=== PATIENT | female | born 1965 | race Caucasian/White ===

== ENCOUNTER 2023-09-10 17:13 | Emergency (ER) | payer BC, SELFPAY ==
[2023-09-10 17:19] VITALS: BP 159/81; PULSE 112; TEMP 36.8; O2SAT 100; BMI 18.3
--- NOTE | 2023-09-10 17:32 | ED_ITS ---
HPI - Animal Bite General Chief Complaint: Animal Bite Stated Complaint: Cat Bite Time Seen by Provider: 09/10/23 17:25 Source: patient Mode of arrival: walk-in History of Present Illness HPI narrative: 58-year-old female presents for cat bite and scratches to both hands, primarily the left hand. This happened 3 days ago and she is up-to-date on her tetanus status. She was mostly worried about her left index finger because it turned r ed so she came in. No other injury was sustained. She has not yet sought medical care. Related Data Previous Rx's ?Medication ?Instructions ?Recorded clindamycin HCl 300 mg capsule 300 mg PO Q6H 10 days #40 caps 09/10/23 sulfamethoxazole 800 1 tab PO BID 10 days #20 tabs 09/10/23 mg-trimethoprim 160 mg tablet (Bactrim DS) Allergies Allergy/AdvReac Type Severity Reaction Status Date / Time Penicillins Allergy Severe Verified 09/10/23 17:24 Review of Systems ROS Narrative A ten point review of systems is negative except as noted above. Exam Narrative Exam Narrative: Nurses note and vital signs reviewed and patient is not hypoxic. General: The patient appears well and in no apparent distress. Patient is resting comfortably on cart. Skin: Warm, dry, no pallor noted. There is no rash noted. Head: Normocephalic, atraumatic Eye: Normal conjunctiva, no drainage Ears, Nose, Mouth, and Throat: oral mucosa is moist. Nares patent. Cardiovascular: Regular Rate and Rhythm Respiratory: Patient is in no distress, no accessory muscle use Back: non-tender GI: Soft and nontender Musculoskeletal: She has numerous abrasions and bite barnett on both hands, more on the left than the right. None extend above the wrist. Left index finger has some mild erythema but it is not swollen and DIP and PIP have good range of motion. No drainage or lymphangitis. Neurological: A&O, normal speech Psychiatric: Cooperative Constitutional Vital Signs, click to edit/add: Last Vital Signs Temp 98.3 F 09/10/23 17:19 Pulse 112 H 09/10/23 17:19 Resp 18 09/10/23 17:19 BP 159/81 H 09/10/23 17:19 Pulse Ox 100 09/10/23 17:19 O2 Del Method Room Air 09/10/23 17:19 Course Vital Signs Vital signs: Vital Signs Temperature 98.3 F 09/10/23 17:19 Pulse Rate 112 H 09/10/23 17:19 Respiratory Rate 18 09/10/23 17:19 Blood Pressure 159/81 H 09/10/23 17:19 Pulse Oximetry 100 09/10/23 17:19 Oxygen Delivery Method Room Air 09/10/23 17:19 Temperature 98.3 F 09/10/23 17:19 Pulse Rate 112 H 09/10/23 17:19 Respiratory Rate 18 09/10/23 17:19 Blood Pressure 159/81 H 09/10/23 17:19 Pulse Oximetry 100 09/10/23 17:19 Oxygen Delivery Method Room Air 09/10/23 17:19 MDM - Animal Bite MDM Narrative Medical decision making narrative: Tetanus is up-to-date. She is prescribed Bactrim and clindamycin and these were started here. Treatment diagnosis and follow-up were discussed with the patient. She will return for worsening symptoms. Differential Diagnosis Differential diagnosis: Likely cat bite and other (Cellulitis) Discharge Plan Discharge Stand Alone Forms: Portal Instructions Chief Complaint: Animal Bite Clinical Impression: Cat bite Patient Disposition: Home, Self-Care Time of Disposition Decision: 17:32 Condition: Good Mode of Transportation: Private Vehicle Prescriptions / Home Meds: New clindamycin HCl 300 mg capsule 300 mg PO Q6H 10 Days Qty: 40 0RF sulfamethoxazole-trimethoprim [Bactrim DS] 800-160 mg tablet 1 tab PO BID 10 Days Qty: 20 0RF Print Language: Georgian Instructions: Animal Bite (ED) Referrals: ENRRIQUE ZEE [Primary Care Provider] - 1 week
[2023-09-10] MEDS: SULFAMETHOXAZOLE/TRIMETHOPRIM 800-160 MG TABLET 1 TAB PO (17:39)
[2023-09-10] MEDS: CLINDAMYCIN HCL 150 MG CAPSULE 300 MG PO (17:39)
== END 2023-09-10 17:43 | disposition home or self-care (01) ==
PROVIDERS: Emergency Provider Emergency Medicine; PCP Internal Medicine
DX: S61.452A Open bite of left hand, initial encounter (principal); S61.451A Open bite of right hand, initial encounter; W55.01XA Bitten by cat, initial encounter
CPT/HCPCS: 99283

== ENCOUNTER 2023-12-13 06:50 | Outpatient (OUT) | payer BC, SELFPAY ==
--- NOTE | 2023-12-13 06:54 | MM_ITS ---
Patient Name: JOSH CORDERO MR#: [id number] : 1965 Exam Date: 12/13/2023 Ordering Doctor: DR ENRRIQUE ZEE RADIOLOGY REPORT PROCEDURE: MM TOMOSYNTHESIS SCREENING BI COMPARISON: MG MAMM HERBER SCRN W CAD DIG, 12/11/2012. MG MAMM SCREEN 3D HERBER CAD, 08/23/2022. INDICATIONS: screening for malignant neoplasm of breast Calculator Name NCI Breast Cancer Risk Assessment Tool 5 Year Breast Cancer Risk 1.30% Lifetime Breast Cancer Risk 6.60% Personal Breast Cancer No Personal Ovarian Cancer No Treatments None Family Cancers None LOCATION: [facility] BREAST COMPOSITION: The breasts are extremely dense, which lowers the sensitivity of mammography. FINDINGS: DIAGNOSTIC CATEGORY 2--BENIGN FINDING. NO CHANGE FROM COMPARISON. Scattered benign-appearing calcifications are present. Scattered benign-appearing lymph nodes are present. RIGHT BREAST: No significant suspicious finding. LEFT BREAST: No significant suspicious finding. RECOMMENDATIONS: ROUTINE MAMMOGRAM AND CLINICAL EVALUATION IN 12 MONTHS. PLEASE NOTE: A NORMAL MAMMOGRAM DOES NOT EXCLUDE THE POSSIBILITY OF BREAST CANCER. A CLINICALLY SUSPICIOUS PALPABLE LUMP SHOULD BE BIOPSIED. Dictated by: Ramone Rayo MD on 12/13/2023 at 07:36 Approved by: Ramone Rayo MD on 12/13/2023 at 07:38
== END 2023-12-13 06:51 | disposition home or self-care (01) ==
LOC: MAMMO 06:51
PROVIDERS: PCP Internal Medicine; Visit Provider Internal Medicine
DX: Z12.31 Encounter for screening mammogram for malignant neoplasm of breast (principal)
CPT/HCPCS: 77063; 77067

== ENCOUNTER 2025-01-17 14:35 | Emergency (ER) | payer BC, SELFPAY ==
--- OUTSIDE RECORDS SUMMARY | 2024-03-14 11:04 | XMS_ITS | Continuity of Care Document ---
Author Organization [facility] Address [address] [place] [address] Phone Care Team Providers Care Combination Operator Name Role Phone Shane Smyth Unavailable Unavailable Procedures Procedure Date IMMUNIZATION ADMIN FLU VACCINE NO PRESERV 3 & > FLU VAC NO PRSV 4 COLETTE 3 YRS+ FLU VAC NO PRSV 4 COLETTE 3 YRS+ FLU VAC NO PRSV 4 COLETTE 3 YRS+ IMMUNIZATION ADMIN FLU VAC NO PRSV 4 COLETTE 3 YRS+ FLU VAC NO PRSV 4 COLETTE 3 YRS+ UDS Exempt IMMUNIZATION ADMIN FLU VAC NO PRSV 4 COLETTE 3 YRS+ IMMUNIZATION ADMIN FLU VAC NO PRSV 4 COLETTE 3 YRS+ IMMUNIZATION ADMIN FLU VAC NO PRSV 4 COLETTE 3 YRS+ IMMUNIZATION ADMIN FLU VAC NO PRSV 4 COLETTE 3 YRS+ IMMUNIZATION ADMIN FLU VAC NO PRSV 4 COLETTE 3 YRS+ Advance Directives Directive Yes / No Effective Date File Name No Information Encounters Encounter Description Practice Location Reason(s) For Visit Diagnoses Date Provider Providers Copied on Encounter [facility], [address], [place], [id number], [place] tel:[phone] [facility] No Information Marlin Borjas. [address] [place] [address], [id number], [place]. tel:[phone] [facility], [address], [place], [id number], [place] tel:[phone] [facility] No Information Visci DO Shane. [address], [place], [id number], [place]. tel:[phone] [facility], [address], [place], [id number], [place] tel:[phone] [facility] No Information Visci DO Shane. [address], [place], [id number], [place]. tel:[phone] [facility], [address], [place], [id number], [place] tel:[phone] [facility] No Information Visci DO Lynn. [address], [place], [id number], [place]. tel:[phone] [facility], [address], [place], [id number], [place] tel:[phone] [facility] No Information Visci DO Lynn. [address], [place], [id number], [place]. tel:[phone] [facility], [address], [place], [id number], [place] tel:[phone] [facility] No Information Visci Shane. [address], [place], [id number], [place]. tel:[phone] [facility], [address], [place], [id number], [place] tel:[phone] [facility] No Information Visci DO Lynn. [address], [place], [id number], [place]. tel:[phone] [facility], [address], [place], [id number], [place] tel:[phone] [facility] No Information Viscoseas Borjas. [address], [place], [id number], [place]. tel:[phone] [facility], [address], [place], [id number], [place] tel:[phone] [facility] No Information Marlin Borjas. [address], [place], [id number], [place]. tel:[phone] Family History Family Member Type Diagnosis Age At Onset No Information Immunizations Vaccine Date Status Comments Fluarix/Flulaval administered Source: New Immunization Record Flulaval/ Fluarix administered Source: Ne w Immunization Record Flulaval/ Fluarix administered Source: Ne w Immunization Record Flulaval/ Fluarix administered Source: Ne w Immunization Record Influenza virus vaccine, quadrivalent, split virus, preservative free administered Source: New Immuniza tion Record Influenza virus vaccine, quadrivalent, split virus, preservative free administered Source: New Immuniza tion Record Influenza virus vaccine, injectable, quadrivalent, split virus, preservative free, 3 years or older Fluarix, Flulaval or Fluzone Quad administered Source: New Immuniza tion Record Influenza virus vaccine, injectable, quadrivalent, split virus, preservative free, 3 years or older Fluarix, Flulaval or Fluzone Quad administered Source: New Immuniza tion Record Influenza virus vaccine, injectable, quadrivalent, split virus, preservative free, 3 years or older Fluarix, Flulaval or Fluzone Quad administered Source: New Immuniza tion Record Payers Payer name Insurance type Covered green party ID Authoriza tion(s) No Information Social History Type Description Quantity Date Captured Comments Alcohol Use Details Unknown Caffeine Use Details Unknown Tobacco Use Status No Information Smoking Status No Information Sex Female Sexual Orientation Straight or heterosexual Gender Identity Female Chief Complaint And Reason For Visit No Information Reason For Referral Reason For Referral No Information Plan Of Treatment Date Type Action Status Goal PRAPARE ASSESSMENT. Due on O due Goal FIT. Due on due Goal FIT-DNA. Due on due Goal Hepatitis C screening. Due o n due Goal Lipid panel. Due on due Goal Zoster vaccine (1st). Due on due Goal Tdap Vaccine. Due on [address]-Colonography. Due on due Goal Mammogram. Due on due Goal FOBT. Due on due Goal Unhealthy drug use screening . Due on due Goal Tdap. Due on due Goal Influenza vaccine. Due on Oc due Goal Hep A. Due on du e Goal HPV. Due on due Goal Depression screening. Due on due Goal Colonoscopy. Due on due Goal Colonoscopy. Due on 023 due Goal Tdap. Due on due Goal Hepatitis C screening. Due o n due Goal Depression screening. Due on due Goal FIT. Due on due Goal Hep A. Due on du e Goal FIT-DNA. Due on due Goal CT-Colonography. Due on due Goal HPV. Due on due Goal Lipid panel. Due on 023 due Goal Tdap Vaccine. Due on 2022 due Goal Influenza vaccine. Due on Oc due Goal Mammogram. Due on due Goal FOBT. Due on due Goal Unhealthy drug use screening . Due on due Goal PRAPARE ASSESSMENT. Due on O due Goal Zoster vaccine (1st). Due on due History Of Present Illness Encounter Date Complaint History Of Prese nt Illness No Information Functional Status Date Functional Assessmen t No Information Instructions Date Instruction Additional Infor mation No Information Assessments Type Assessment Date No Information Patient Care Teams Name Effective Dates (start - stop) Status Members No Information
--- OUTSIDE RECORDS SUMMARY | 2025-01-08 15:15 | XMS_ITS | Encounter Summary ---
Author Organization [facility] Address [address] [place] [address] Care Team Providers Care Budget Analyst Name Role Phone Unavailable Primary Care Provider Unavailabl e Reason for Visit * Reason Comments Skin Check Encounter Details Date Type Department Care Team (Late st Contact Info) Description 01/08/2025 3:15 PM EDT Office Visit [facility] [address] [facility] [address] [place] [id number] Regi Moreno MD [address] [facility] [address] [place] [address] Seborrheic keratosis (Primary Dx); Actinic keratosis; Sebaceous hyperplasia of face; Neoplasm of unspecified behavior of bone, soft tissue, and skin; Lentigines; History of basal cell carcinoma Social History Tobacco Use Types Packs/Day Years Used Date Smoking Tobacco: Never Smokeless Tobacco: Never Comments Unknown Sex and Gender Information Value Date Recorded Sex Assigned at Not on file Legal Sex Female 6:42 PM EDT Gender Identity Not on file Sexual Orientation Not on file documented as of this encounter Progress Notes * Regi Moreno MD - 01/08/2025 3:15 PM EDT Images from the original note were not included. Skin Check Location: Patient requests a full body skin examination Dermatologic history: history of Actinic Keratosis, history of Basal Cell Carcinoma Last visit: 05/2024 Lesions: Location: left back Duration: 3 months Quality: painful Associated symptoms: red Treatments: Efudex cream bid x 2 weeks- used for 2 courses, had good response both times but spot did not go away Established patient All pertinent medical history, medications, and allergies were reviewed. General Exam: alert, oriented to person, place, and time, normal affect, well appearing Unaccompanied Areas not examined despite medical recommendation: Under socks Scalp, Examined , exam limited by hair Right leg Examined Head, Face Examined , Patient declined to remove makeup Left leg Examined Neck Examined Right foot Not Examined Chest Examined Patient kept bra on Left foot Not Examined Back Examined Buttocks Examined Patient kept underwear on Abdomen Examined Digits,nails: Examined Right arm Examined Left arm Examined Lymphatics: Not examined Hands Examined Skin Exam 1. SEBORRHEIC KERATOSIS Generalized Stuck on verrucous, hills-brown papules and plaques. Patient was counseled regarding these benign growths. Removal is normally not necessary, but they may be removed if they are symptomatic or for cosmetic reasons. 2. ACTINIC KERATOSIS (6) Left Buccal Cheek, Mid Back, Mid Root of Nose, Right Lower Back, Right Malar Cheek, Right Upper Back Erythematous scaly papules Patient was counseled regarding these sun-induced growths that can develop into squamous cell carcinoma if left untreated. Discussed treatment with cryotherapy. It was emphasized that any treated lesions that fail to resolve should be re- evaluated. Cryotherapy performed today; see procedure note Diagnosis: Actinic keratosis Indication: Precancerous Location: see skin exam Consent: Verbal consent was obtained and risks were discussed, including, but not limited to risks of scarring, darker or glass novelty maker pigmentary changes, recurrence, incomplete removal and infection. Method: Liquid nitrogen was used to treat the lesion(s) with two 5-10 second freeze-thaw cycles. Eyes were shielded using cotton pad during procedure Number of lesions treated: 6 Post-procedure instructions: Instructions were given orally and in writing. The office will be contacted if the lesion fails to resolve despite treatment, or if a side effect develops such as abnormal crusting, scabbing, redness or tenderness Cryotherapy, skin lesion - Left Buccal Cheek, Mid Back, Mid Root of Nose, Right Lower Back, Right Malar Cheek, Right Upper Back Related Medications fluorouracil (Efudex) 5 % cream Apply to directed areas on the chest twice a day x 14 days. Dispense 30 day supply but only use for14 days. 3. SEBACEOUS HYPERPLASIA OF FACE Head - Anterior (Face) Small yellow papules with a central dell. Reassure, benign. Discussed these can be removed for a cosmetic fee with the hyfrecator if desired. 4. NEOPLASM OF UNSPECIFIED BEHAVIOR OF BONE, SOFT TISSUE, AND SKIN Left Upper Back [place] papule Lesion biopsy Type of biopsy: tangential Informed consent: discussed and consent obtained Informed consent comment: The risks and benefits of the biopsy were discussed. Risks include but are not limited to bleeding, infection, scarring, pain, and nerve damage. An opportunity to ask questions prior to the procedure was permitted and all questions were answered. Patient was prepped and draped in usual sterile fashion: area cleansed with alcohol. Anesthesia: the lesion was anesthetized in a standard fashion Anesthetic: 1% lidocaine w/ epinephrine 1-100,000 buffered w/ 8.4% NaHCO3 Instrument used: DermaBlade Hemostasis achieved with: electrodesiccation Outcome: patient tolerated procedure well Outcome comment: The specimen was placed in a prelabeled formalin container to be sent for pathology Post-procedure details: sterile dressing applied and wound care instructions given Post-procedure details comment: Emphasized need to contact clinic for any signs of infection, uncontrollable bleeding, or complications. Dressing type: bandage Additional details: Photo taken Amount of lidocaine used: 1.0 cc Specimen A - Dermatopathology exam Differential Diagnosis: BCC vs inflamed follicle - treated by patient with efudex x 2 Check Margins: No Size of lesion: 0.5 x 0.5 cm Diagnosis: (Z85.828) History of basal cell carcinoma (L57.0) Actinic keratosis Plan: Cryotherapy, skin lesion (L73.8) Sebaceous hyperplasia of face (D49.2) Neoplasm of unspecified behavior of bone, soft tissue, and skin Plan: Lesion biopsy 5. LENTIGINES (2) Head - Anterior (Face), Torso - Posterior (Back) Scattered hills macules in sun-exposed areas. The patient was informed that lentigines are benign pigmented lesions that occur on sun-exposed andsun-damaged skin. No treatment is necessary. Recommended regular use of broad spectrum sunscreen SPF 30 or higher 6. HISTORY OF BASAL CELL CARCINOMA Right Upper Back No evidence of recurrence at BCC scar. The patient was counseled that scars from excisional sites of nonmelanoma skin cancers should be monitored closely for recurrence. The patient was instructed to contact the office for any new, changing, or symptomatic moles. The patient was also instructed to contact the office for any new lesions that develop within or around the previous surgery scar. Next Visit: 6 months documented in this encounter Plan of Treatment Upcoming Encounters Date Type Department Care Team (Late st Contact Info) Description 07/16/2025 3:00 PM EST Office Visit [facility] [address] [place] [id number] Regi Moreno MD [address] [place] [address] documented as of this encounter Procedures Procedure Name Priority Date/Time Associated Diagnosis Comments SKIN / NAIL BIOPSY Routine 01/08/2025 3: 23 PM EDT Neoplasm of unspecified behavior of bone, soft tissue, and skin CRYOTHERAPY SKIN LESION Routine 01/09/20 3:21 PM EDT Actinic keratosis DERMATOPATHOLOGY EXAM Routine 01/08/2025 12:00 AM EDT Neoplasm of unspecified behavior of bone, soft tissue, and skin documented in this encounter Results * Lesion biopsy (01/08/2025 3:23 PM EDT) Narrative Eliz East MA - 01/08/2025 3:23 PM EDT Type of biopsy: tangential Informed consent: discussed and consent obtained Informed consent comment: The risks and benefits of the biopsy were discussed. Risks include but are not limited to bleeding, infection, scarring, pain, and nerve damage. An opportunity to ask questions prior to the procedure was permitted and all questions were answered. Patient was prepped and draped in usual sterile fashion: area cleansed with alcohol. Anesthesia: the lesion was anesthetized in a standard fashion Anesthetic: 1% lidocaine w/ epinephrine 1-100,000 buffered w/ 8.4% NaHCO3 Instrument used: DermaBlade Hemostasis achieved with: electrodesiccation Outcome: patient tolerated procedure well Outcome comment: The specimen was placed in a prelabeled formalin container to be sent for pathology Post-procedure details: sterile dressing applied and wound care instructions given Post-procedure details comment: Emphasized need to contact clinic for any signs of infection, uncontrollable bleeding, or complications. Dressing type: bandage Additional details: Photo taken Amount of lidocaine used: 1.0 cc Regi Moreno MD DERM PROCEDURE ORDERABLES Fin al Result * Cryotherapy, skin lesion (01/08/2025 3:21 PM EDT) Regi Moreno MD DERM PROCEDURE ORDERABLES Fin al Result * Dermatopathology exam (01/08/2025 12:00 AM EDT) SPECIMEN TYPE ------ SPECIMEN: LEFT UPPER BACK ------ [facility] ICD10 Code D23.5 [facility] PROTOCOL F - FLAT [facility] Final Diagnosis LICHENOID KERATOSIS. [facility] Gross Text [facility] Microscopic Description Microscopic examination performed. [facility] CPT 16914*1 [facility] Skin Topography unknown / Unknown 01/08/2025 3:23 PM EDT Comment:Differential Diagnos is: BCC vs inflamed follicle - treated by patient with efudex x 2 Check Margins: No Size of lesion: 0.5 x 0.5 cm Diagnosis: (Z85.828) History of basal cell carcinoma (L57.0) Actinic keratosis Plan: Cryotherapy, skin lesion (L73.8) Sebaceous hyperplasia of face (D49.2) Neoplasm of unspecified behavior of bone, soft tissue, and skin Plan: Lesion biopsy Regi Moreno MD LAB PATHOLOGY ORDERABLES Marley l Result [facility] documented in this encounter Visit Diagnoses Diagnosis Seborrheic keratosis- Primary Actinic keratosis Sebaceous hyperplasia of face Neoplasm of unspecified behavior of bone, soft tissue, and skin Lentigines History of basal cell carcinoma Personal history of other malignant neoplasm of skin documented in this encounter
[2025-01-17 14:44] VITALS: BP 129/62; PULSE 85; TEMP 36.6; O2SAT 100; BMI 17.5
--- OUTSIDE RECORDS SUMMARY | 2025-01-17 14:44 | XMS_ITS | Encounter Summary ---
Author Organization [employer] [facility] Address [id number] [address] [place] [address] Care Team Providers Care Employment Officer Name Role Phone Ruben Booker Primary Care Provider [phone] Encounter Details Date Type Department Care Team (Late st Contact Info) Description 05/16/2024 Telephone [facility] Internal Medicine - Family Medicine [address] [place] [address] Francine Ramirez CMA Social History Tobacco Use Types Packs/Day Years Used Date Smoking Tobacco: Never Smokeless Tobacco: Never Alcohol Use Standard Drinks/Week Comments No 0 (1 standard drink = 0.6 oz pur e alcohol) PHQ-2 Answer Date Recorded Total Score 0 11/20/2023 Childcare Answer Date Recorded Childcare Unknown 10/30/2018 Employment Answer Date Recorded Employment Unknown 10/30/2018 Hunger Screening Answer Date Recorded Within the past 12 months we worried whether our food would run out before we got money to buy more. Never True 11/20/2023 Within the past 12 months th e food we bought just didn't last and we didn't have money to get more. Never True 11/20/2023 Purpose - Life Answer Date Recorded Purpose and direction in life Unknown Comments No Sex and Gender Information Value Date Recorded Sex Assigned at Not on file Legal Sex Female 4:49 PM EDT Gender Identity Not on file Sexual Orientation Not on file documented as of this encounter Miscellaneous Notes * Telephone Encounter - Francine Ramirez CMA - 05/16/2024 2:53 PM EST Pt called stated she has a sinus infection wanted to know if you could send something in or call her ? * Telephone Encounter - Ruben Booker DO - 05/16/2024 2:53 PM EST Message noted. What has she tried? How long has it been going on? Fevers? * Telephone Encounter - Francine Ramirez CMA - 05/16/2024 2:53 PM EST Called pt no fever, been going on for 3-4 days , she's tried sudifed it helped with headache and unplugged her a bit and saline that helped unplug it a bit also documented in this encounter Plan of Treatment Not on file documented as of this encounter Visit Diagnoses Not on filedocumented in this encounter Additional Health Concerns Assessment Noted Time PHQ-9 Depression Total Score: 0 11/20/19 24 3:48 PM EDT documented as of this encounter Care Teams Employment Officer Relationship Specialty Start Date End Date Ruben Booker DO [address] [place] [address] PCP - General Internal Medicine 04/21/17 documented as of this encounter
--- OUTSIDE RECORDS SUMMARY | 2025-01-17 14:44 | XMS_ITS | Clinical Summary ---
Author Organization [facility] Healthcare Address [address] [place] [address] [place] [address] Care Team Providers Care Emergency Nurse Name Role Phone Unavailable Primary Care Provider Unavailabl e Allergies Active Allergy Reactions Criticality Noted Date Comments Ciprofloxacin Hives,GI intolerance High 04/21/2017 Penicillins Hives,Nausea Only Medium 12/07/2020 Other Reaction(s): very sick from this antibiotic Medications insulin glargine (Lantus) 100 UNIT/ML pen 1 Units 4 Active insulin lispro (HumaLOG) 100 UNIT/ML injection inject 30 units daily VIA INSULIN PUMP Subcutaneous for 28 Active lisinopril 10 MG tablet Daily 4 Active Multiple Vitamin (multivitamin) capsule 1 (one) time each day at the same time Active rosuvastatin (Crestor) 5 MG tablet Daily 3 Active fluorouracil (Efudex) 5 % creamIndication s:Actinic keratosis Apply to directed areas on the chest twice a day x 14 days. Dispense 30 day supply but only use for 14 days. 40 g 4 Active FLUoxetine (PROzac) 10 MG capsule 5 Active propranolol (Inderal) 10 MG tablet every 8 (eight) hours Active lamoTRIgine (LaMICtal) 200 MG tablet 5 Active ziprasidone (Geodon) 20 MG capsule 5 Active Active Problems No known active problems Encounters Date Type Department Care Team Description 01/13/2025 Results Follow-Up [facility] Dermatology [address] [place] [id number] Regi Moreno MD Dermatopathology exam 01/08/2025 3:15 PM EDT Office Visit [facility] [address] [facility] [address] [place] [address] Regi Moreno MD Seborrheic keratosis (Primary Dx); Actinic keratosis; Sebaceous hyperplasia of face; Neoplasm of unspecified behavior of bone, soft tissue, and skin; Lentigines; History of basal cell carcinoma 01/08/2025 [facility] [place] [facility] [address] [facility] [address] [place] [address] Regi Moreno MD 01/08/2025 Travel from Last 3 Months Social History Tobacco Use Types Packs/Day Years Used Date Smoking Tobacco: Never Smokeless Tobacco: Never Tobacco Cessation:Counseling Given: Not Answered Comments Unknown Sex and Gender Information Value Date Recorded Sex Assigned at Not on file Legal Sex Female 6:42 PM EDT Gender Identity Not on file Sexual Orientation Not on file Last Filed Vital Signs Vital Sign Reading Time Taken Comments Blood Pressure 110/60 05/10/2024 8:57 AM EST Pulse - - Temperature - - Respiratory Rate - - Oxygen Saturation - - Inhaled Oxygen Concentration - - Weight 49.9 kg (110 lb) 12/01/2020 12:00 PM EDT Height 163.8 cm (5' 4.5 ) 12/01/2020 12:00 PM ED T Body Mass Index 18.59 12/01/2020 12:00 PM EDT Plan of Treatment Upcoming Encounters Date Type Department Care Team (Late st Contact Info) Description 07/16/2025 3:00 PM EST [facility] [address] [facility] [address] [place] [address] Regi Moreno MD [address] [facility] [address] [place] [address] Health Maintenance Due Date Last Done Comments CT Colonography 1963 Colonoscopy 1963 FIT 1963 FOBT 1963 Sigmoidoscopy 1963 Pap Smear 08/02/1984 Colorectal Cancer Screening 01/18/2024 FIT-DNA 01/18/2024 01/17/2021 Mammogram 12/12/2024 12/13/2023, 08/24/2022 Influenza Vaccine (#1) 2025 4, 03/07/2023, 02/15/2022, Additional history exists Cervical Cancer Screening 08/10/2027 HPV/Cotest 08/10/2027 08/09/2022 Procedures Procedure Name Priority Date/Time Associated Diagnosis Comments SKIN / NAIL BIOPSY Routine 01/08/2025 3: 23 PM EDT Neoplasm of unspecified behavior of bone, soft tissue, and skin CRYOTHERAPY SKIN LESION Routine 01/09/20 3:21 PM EDT Actinic keratosis DERMATOPATHOLOGY EXAM Routine 01/08/2025 12:00 AM EDT Neoplasm of unspecified behavior of bone, soft tissue, and skin from Last 3 Months Results * Lesion biopsy (01/08/2025 3:23 PM [...] taken Amount of lidocaine used: 1.0 cc us Regi Moreno MD DERM PROCEDURE ORDERABLES Fin al Result * Cryotherapy, skin lesion (01/08/2025 3:21 PM EDT) us Regi Moreno MD DERM PROCEDURE ORDERABLES Fin al Result * Dermatopathology exam (01/08/2025 12:00 AM EDT) SPECIMEN TYPE ------ SPECIMEN: LEFT UPPER BACK ------ [facility] ICD10 Code D23.5 [facility] PROTOCOL F - FLAT [facility] Final Diagnosis LICHENOID KERATOSIS. [facility] Gross Text [facility] Microscopic Description Microscopic examination performed. [facility] CPT 21470*1 [facility] Skin Topography unknown / Unknown [...] soft tissue, and skin Plan: Lesion biopsy us Regi Moreno MD LAB PATHOLOGY ORDERABLES Marley l Result [facility] from Last 3 Months Insurance [facility]
--- OUTSIDE RECORDS SUMMARY | 2025-01-17 14:44 | XMS_ITS | Encounter Summary ---
Author Organization [employer] Address [facility] [id number] [address] [place] [address] Care Team Providers Care Distribution District Supervisor Name Role Phone Ruben Booker DO Primary Care Provider [phone] Encounter Details Date Type Department Care Team (Late st Contact Info) Description 08/12/2022 Orders Only [facility] - Family Medicine [address] [place] [address] External, Scanning Provider Social History Tobacco Use Types Packs/Day Years Used Date Smoking Tobacco: Never Smokeless Tobacco: Never Alcohol Use Standard Drinks/Week Comments No 0 (1 standard drink = 0.6 oz pur e alcohol) PHQ-2 Answer Date Recorded Total Score 0 08/09/2022 Childcare Answer Date Recorded Childcare Unknown 10/30/2018 Employment Answer Date Recorded Employment Unknown 10/30/2018 Purpose - Life Answer Date Recorded Purpose and direction in life Unknown Comments No Sex and Gender Information Value Date Recorded Sex Assigned at Not on file Legal Sex Female 4:49 PM EDT Gender Identity Not on file Sexual Orientation Not on file COVID-19 Exposure Response Date Recorded In the last month, have you been in contact with someone who was confirmed or suspected to have Coronavirus / COVID-19? No / Unsure 08/09/2022 2:16 PM EDT documented as of this encounter Plan of Treatment Not on file documented as of this encounter Procedures Procedure Name Priority Date/Time Associated Diagnosis Comments COLOGUARD Routine 01/17/2021 documented in this encounter Results * COLOGUARD (01/17/2021) us Scanning Provider External HEALTH MAINTENANCE Fi nal Result MANUALLY TRANSCRIBED RESULTS documented in this encounter Visit Diagnoses Not on filedocumented in this encounter Additional Health Concerns Assessment Noted Time PHQ-9 Depression Total Score: 0 08/10/19 23 2:22 PM EDT documented as of this encounter Care Teams Distribution District Supervisor Relationship Specialty Start Date End Date Ruben Booker DO [address] [place] [address] PCP - General Internal Medicine 04/21/17 documented as of this encounter
--- OUTSIDE RECORDS SUMMARY | 2025-01-17 14:44 | XMS_ITS | Encounter Summary ---
Author Organization [facility] Address [address] [place] [address] Care Team Providers Care Ios Architect Name Role Phone Unavailable Primary Care Provider Unavailabl e Encounter Details Date Type Department Care Team (Latest Contact Info) Description 01/13/2025 Results Follow-Up [facility] [address] [place] [address] Regi Moreno MD [address] [place] [address] Dermatopathology exam Social History Tobacco Use Types Packs/Day Years Used Date Smoking Tobacco: Never Smokeless Tobacco: Never Comments Unknown Sex and Gender Information Value Date Recorded Sex Assigned at Not on file Legal Sex Female 6:42 PM EDT Gender Identity Not on file Sexual Orientation Not on file documented as of this encounter Plan of Treatment Upcoming Encounters Date Type Department Care Team (Late st Contact Info) Description 07/16/2025 3:00 PM EST Office Visit [facility] [address] [place] [address] Regi Moreno MD [address] [place] [address] documented as of this encounter Visit Diagnoses Not on filedocumented in this encounter
--- OUTSIDE RECORDS SUMMARY | 2025-01-17 14:44 | XMS_ITS | Encounter Summary ---
Author Organization [employer] Address [facility] [id number] [address] 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 ([facility]) Social History Tobacco Use Types Packs/Day Years Used Date Smoking Tobacco: Never Smokeless Tobacco: Never Alcohol Use Standard Drinks/Week Comments No 0 (1 standard drink = 0.6 oz pur e alcohol) Childcare Answer Date Recorded Childcare Unknown 10/30/2018 [...] encounter Miscellaneous Notes * Telephone Encounter - Viktoriya Tarango CMA - 07/11/2022 2:17 PM EST Pt left message, needs meds sent to [facility] documented in this encounter Plan of Treatment Not on file documented as of this encounter Visit Diagnoses Diagnosis Essential hypertension- Primary Unspecified essential hypertension 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
--- OUTSIDE RECORDS SUMMARY | 2025-01-17 14:44 | XMS_ITS | Encounter Summary ---
Author Organization [employer] Address [facility] [id number] [address] [place] [address] Care Team Providers Care Historian Dramatic Arts Name Role Phone Ruben Booker DO Primary Care Provider [phone] Encounter Details Date Type Department Care Team (Late st Contact Info) Description 10/13/2022 Orders Only [facility] - Family Medicine [address] [place] [address] External, Scanning Provider Social History Tobacco Use [...] Procedure Name Priority Date/Time Associated Diagnosis Comments DIABETES EYE EXAM Routine 10/13/2022 documented in this encounter Results * DIABETES EYE EXAM (10/13/2022) us Scanning Provider External HEALTH MAINTENANCE Fi nal Result MANUALLY TRANSCRIBED RESULTS documented in this encounter Visit Diagnoses Not on filedocumented in this encounter Additional Health Concerns Assessment Noted Time PHQ-9 Depression Total Score: 0 08/10/19 23 2:22 PM EDT documented as of this encounter Care Teams Historian Dramatic Arts Relationship Specialty Start Date End Date Ruben Booker DO [address] [id number] PCP - General Internal Medicine 04/21/17 documented as of this encounter
--- OUTSIDE RECORDS SUMMARY | 2025-01-17 14:44 | XMS_ITS | Encounter Summary ---
Author Organization [facility] Address [address] [place] [address] Care Team Providers Care Information Clerk Name Role Phone Unavailable Primary Care Provider Unavailabl e Encounter Details Date Type Department Care Team (Late st Contact Info) Description 01/08/2025 Bamboo flowsheet [facility] [address] [place] [address] Regi Moreno MD [address] [place] [address] Social History Tobacco Use Types Packs/Day Years [...] Dermatology [address] [place] [address] Regi Moreno MD [address] [place] [address] documented as of this encounter Visit Diagnoses Not on filedocumented in this encounter
--- OUTSIDE RECORDS SUMMARY | 2025-01-17 14:44 | XMS_ITS | Encounter Summary ---
Author Organization [employer] Address 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
--- OUTSIDE RECORDS SUMMARY | 2025-01-17 14:44 | XMS_ITS | Encounter Summary ---
Author Organization [employer] Address [facility] [id number] [address] [place] [address] Care Team Providers Care Software Configuration Engineer Name Role Phone Ruben Booker DO Primary Care Provider [phone] Encounter Details Date Type Department Care Team (Late st Contact Info) Description 06/29/2024 Orders Only [facility] - Family Medicine [address] [place] [address] Ruben Booker DO [address] [place] [address] Bipolar II disorder ([facility]) (Primary Dx) Social History Tobacco Use Types Packs/Day Years Used Date Smoking Tobacco: Never Smokeless Tobacco: Never Alcohol Use Standard Drinks/Week Comments No 0 (1 standard drink = 0.6 oz pur e alcohol) Overall Financial Resource Strain (CARDIA) Answe r Date Recorded How hard is it for you to pa y for the very basics like food, housing, medical care, and heating? Not hard at all 06/26/2024 PHQ-2 Answer Date Recorded Total Score 0 06/26/2024 PRAPARE - Transportation Answer Date Re corded In the past 12 months, has l ack of transportation kept you from medical appointments or from getting medications? No 09/2024 In the past 12 months, has l ack of transportation kept you from meetings, work, or from getting things needed for daily living? No 06/26/2024 Housing Instability Answer Date Recorde d Are you worried or concerned that in the next two months you may not have stable housing that you own, rent or stay in as a part of a household? No 06/26/2024 Childcare Answer Date Recorded Childcare Unknown 10/30/2018 Employment Answer Date Recorded Employment Unknown 10/30/2018 Hunger Screening Answer Date Recorded Within the past 12 months we worried whether our food would run out before we got money to buy more. Never True 06/26/2024 Within the past 12 months th e food we bought just didn't last and we didn't have money to get more. Never True 06/26/2024 Purpose - Life Answer Date Recorded Purpose and direction in life Unknown Comments No Sex and Gender Information Value Date Recorded Sex Assigned at Not on file Legal Sex Female 4:49 PM EDT Gender Identity Not on file Sexual Orientation Not on file documented as of this encounter Plan of Treatment Not on file documented as of this encounter Visit Diagnoses Diagnosis Bipolar II disorder ([facility])- Primary Other bipolar disorders documented in this encounter Additional Health Concerns Assessment Noted Time PHQ-9 Depression Total Score: 0 06/26/19 25 4:15 PM EST documented as of this encounter Care Teams Software Configuration Engineer Relationship Specialty Start Date End Date Ruben Booker DO [address] [place] [address] PCP - General Internal Medicine 04/21/17 documented as of this encounter
--- OUTSIDE RECORDS SUMMARY | 2025-01-17 14:44 | XMS_ITS | Encounter Summary ---
Author Organization [employer] Address [facility] [id number] [address] [place] [address] Care Team Providers Care Compugraph Operator Name Role Phone Ruben Booker Primary Care Provider [phone] Encounter Details Date Type Department Care Team (Late st Contact Info) Description 07/20/2023 Telephone [facility] - Family Medicine [address] [place] [address] Francine Ramirez CMA Social History Tobacco Use Types Packs/Day Years Used Date Smoking Tobacco: Never Smokeless Tobacco: Never Alcohol Use Standard Drinks/Week Comments No 0 (1 standard drink = 0.6 oz pur e alcohol) PHQ-2 Answer Date Recorded Total Score 0 02/22/2023 Childcare Answer Date Recorded Childcare Unknown 10/30/2018 Employment Answer Date Recorded Employment Unknown 10/30/2018 Hunger Screening Answer Date Recorded Within the past 12 months we worried whether our food would run out before we got money to buy more. Never True 02/22/2023 Within the past 12 months th e food we bought just didn't last and we didn't have money to get more. Never True 02/22/2023 Purpose - Life Answer Date Recorded Purpose and direction in life Unknown Comments No Sex and Gender Information Value Date Recorded Sex Assigned at Not on file Legal Sex Female 4:49 PM EDT Gender Identity Not on file Sexual Orientation Not on file documented as of this encounter Miscellaneous Notes * Telephone Encounter - Francine Ramirez CMA - 07/20/2023 4:50 PM EST Pt called stated she needed the humalog viles so she can put it in her pump . Stated she may need anew Rx for it pls send it [facility] * Telephone Encounter - Ruben Booker DO - 07/20/2023 4:50 PM EST Message noted. Rx sent to [facility] today documented in this encounter Plan of Treatment Not on file documented as of this encounter Visit Diagnoses Not on filedocumented in this encounter Additional Health Concerns Assessment Noted Time PHQ-9 Depression Total Score: 0 02/23/20 23 3:57 PM EDT documented as of this encounter Care Teams Compugraph Operator Relationship Specialty Start Date End Date Ruben Booker DO [address] [place] [address] PCP - General Internal Medicine 04/21/17 documented as of this encounter
--- OUTSIDE RECORDS SUMMARY | 2025-01-17 14:44 | XMS_ITS | Clinical Summary ---
Author Organization [employer] tem Address [facility] [id number] [address] [place] [address] Care Team Providers Care Filing Writer Name Role Phone Ruben Booker DO Primary Care Provider [phone] Allergies Active Allergy Reactions Criticality Noted Date Comments Ciprofloxacin Hives High 04/21/2017 Penicillins Nausea Medium 12/07/2020 Medications lamoTRIgine (LaMICtal) 200 mg tablet Take 1 tablet (200 mg total) by mouth in the morning. 023 Active ziprasidone (GEODON) 20 mg capsule 023 Active fluticasone propionate (FLONASE) 50 mcg/actuation nasal spray Administer 1 spray into each nostril in the morning. 48 g 023 Active propranoloL (INDERAL) 10 mg tablet Take 1 tablet (10 mg total) by mouth in the morning and 1 tablet (10 mg total) before bedtime. 023 Active rosuvastatin (CRESTOR) 5 mg tabletIndications: Type 1 diabetes mellitus with microalbuminuria (CMS-HCC) TAKE 1 TABLET BY MOUTH IN THE MORNING 90 tablet 3 024 Active lisinopriL (PRINIVIL,ZESTRIL) 10 mg tabletIndications: Essential hypertension TAKE 1 TABLET BY MOUTH IN THE MORNING 90 tablet 3 024 Active fluorouraciL (EFUDEX) 5 % cream Apply to directed areas on the chest twice a day x 14 days. Dispense 30 day supply but only use for 14 days. 024 Active lisdexamfetamine (VYVANSE) 30 mg capsuleIndications :Bipolar II disorder ([facility]) Take 1 capsule (30 mg total) by mouth every morning. Max Daily Amount: 30 mg 90 capsule 025 Active HumaLOG U-100 Insulin 100 unit/mL injectionIndicatio ns:Type 1 diabetes mellitus with microalbuminuria ([facility]) INJECT SUBCUTANEOUSLY 5 UNITS CONTINUOUSLY VIA INSULIN PUMP . MAX 10 UNITS DAILY 40 mL 3 025 Active LANTUS SOLOSTAR U-100 INSULIN 100 unit/mL (3 mL) insulin penIndications:Typ e 1 diabetes mellitus with microalbuminuria ([facility]) INJECT 8 UNITS SUBCUTANEOUSLY EVERY NIGHT 15 mL 3 025 Active HumaLOG KwikPen Insulin 100 unit/mL insulin pen INJECT SUBCUTANEOUSLY 5 UNITS 3 TIMES DAILY WITH MEALS 15 mL 3 025 Active HumaLOG KwikPen Insulin 100 unit/mL insulin pen INJECT 5 UNITS SUBCUTANEOUSLY 3 TIMES DAILY WITH MEALS 15 mL 3 024 01/02 Discontinued LANTUS SOLOSTAR U-100 INSULIN 100 unit/mL (3 mL) insulin penIndications:Typ e 1 diabetes mellitus with microalbuminuria [place] Inject 8 Units under the skin nightly. 15 mL 3 024 01/02 Discontinued Active Problems Problem Noted Date Diagnosed Date Allergic rhinitis 07/11/2022 Essential hypertension 07/11/2022 Gastroesophageal reflux disease 07/11/2022 Type 1 diabetes mellitus 07/11/2022 Bipolar II disorder 04/26/2017 Encounters Date Type Department Care Team Description 01/02/2025 Refill [facility] [address] [place] [address] Ruben Booker DO Type 1 diabetes mellitus with microalbuminuria ([facility]) from Last 3 Months Immunizations Immunization Administration Dates Next Due Influenza Split Preservative Free ID 02/20/2016, 02/19/2015 Influenza, Injectable, quadr ivalent (PF) 02/15/2022,03/03/2021,03/03/2020,03/05,03/14/2017,03/07/2017,03/02/2016 ,03/04/2015 Influenza, Unspecified 02/15/2022,2017,03/08/2017,03/05 Pneumococcal Conjugate 13-Valent 04/08/2015 Pneumococcal Polysaccharide 05/04/2016, 6,05/22/2015 Tdap 02/22/2023 Zoster Vaccine Recombinant 02/09/2021,10/14/2020 Social History Tobacco Use Types Packs/Day Years Used Date Smoking Tobacco: Never Smokeless Tobacco: Never Tobacco Cessation:Counseling Given: Not Answered Alcohol Use Standard Drinks/Week Comments No 0 [...] Sign Reading Time Taken Comments Blood Pressure 126/70 06/26/2024 4:16 PM EST Pulse 75 06/26/2024 4:16 PM EST Temperature 36.6 C (97.9 F) 06/26/2024 4:16 PM EST Respiratory Rate 18 06/26/2024 4:16 PM EST Oxygen Saturation 96% 06/26/2024 4:16 PM EST Inhaled Oxygen Concentration - - Weight 48.1 kg (106 lb) 06/26/2024 4:16 PM EST Height 165.1 cm (5' 5 ) 11/20/2023 3:48 PM EDT Body Mass Index 17.64 11/20/2023 3:48 PM EDT Plan of Treatment Health Maintenance Due Date Last Done Comments Diabetic Foot Exam 08/05/2023 08/04/2022 Diabetic Ophthalmology Exam 11/13/202410/21, 10/20/2022, 10/13/2022 Tobacco Screening 11/19/2024 11/20/2023 Mammogram 12/12/2024 12/13/2023, 08/24/2022 Influenza Vaccine 01/20/2025 03/14/2024, , 02/15/2022, Additional history exists Statin Use: Diabetic 01/31/2025 02/01/2024 Adult BMI Screening 06/26/2025 06/26/2024 Depression Screening 06/26/2025 06/26/2024 Pap Smear 08/09/2025 08/09/2022, 07/21, 08/09/2022 DTaP,Tdap and Td Vaccines (2 - Td or Tdap) 02/22/2033 02/22/2023 Zoster (Shingles) Vaccine Completed 02/09/2021, COVID-19 Vaccine Discontinued 05/27/2021, 07/29/2020 Medical Devices Not on file Procedures Procedure Name Priority Date/Time Associated Diagnosis Comments MAMM SCREENING BILATERAL W CAD Routine 12/13/2023 10:36 AM EDT Encounter for screening mammogram for malignant neoplasm of breast HM DIABETES EYE EXAM Routine 11/14/2023 1:42 PM EDT HIGH RISK HPV W/AQUILES Routine 08/09/2022 6:43 AM EDT Encounter for gynecological examination (general) (routine) without abnormal findings Encounter for screening for malignant neoplasm of vagina from Last 3 Months or Most Recently Relevant to Health Maintenance Results * Mammography screening bilateral with CAD (12/13/2023 10:36 AM EDT) Anatomical Region Laterality Modality Breast Bilateral Mammography us Ruben Booker DO IMG MAMMOGRAPHY ORDERABLES Final Result * HM DIABETES EYE EXAM (11/14/2023 1:42 PM EDT) us Not In System Ref Prov HEALTH MAINTENANCE Final Result MANUALLY TRANSCRIBED RESULTS * High risk HPV w/aquiles (08/09/2022 6:43 AM EDT) Hpv specimen type ThinPrep 08/10/2022 6:43 AM EDT [facility] Hpv 16 Negative Negative^N egative 08/10/2022 2:23 PM EDT [facility] Hpv 18 Negative Negative^N egative 08/10/2022 2:23 PM EDT [facility] Other high risk hpv Negative Negative^N egative 08/10/2022 2:23 PM EDT [facility] Comment: HPV types 31,33,35,39,45,52,56,58,59,66 and 68 DNA were undetectable. THINP 08/09/2022 6:43 AM EDT 08/09/2022 7:01 AM EDT us Asha Tapia [employer]-BILINGUAL LOAN PROCESSOR LAB BLOOD ORDERABLES Final Result [employer] [facility] [address] [facility] [place] [address] [facility] [address] [place] [address], [address] [place] [address] from Last 3 Months or Most Recently Relevant to Health Maintenance [place] [address] [place] [address] Care Teams Filing Writer Relationship Specialty Start Date End Date Ruben Booker DO [address] [place] [address] PCP - General Internal Medicine 04/21/17
--- OUTSIDE RECORDS SUMMARY | 2025-01-17 14:44 | XMS_ITS | Encounter Summary ---
Author Organization [employer] tem Address [facility] [id number] [address] [place] [address] Care Team Providers Care Seed Service Advisor Name Role Phone Ruben Booker DO Primary Care Provider [phone] Encounter Details Date Type Department Care Team (Late st Contact Info) Description 12/13/2023 Orders Only [facility] - [facility] [address] [place] [address] Ruben Booker DO [address] [place] [address] Encounter for screening mammogram for malignant neoplasm of breast Social History Tobacco Use Types Packs/Day Years [...] screening mammogram for malignant neoplasm of breast documented in this encounter Results * Mammography screening bilateral with CAD (12/13/2023 10:36 AM EDT) Anatomical Region Laterality Modality Breast Bilateral Mammography Ruben Booker DO IMG MAMMOGRAPHY ORDERABLES Final Result documented in this encounter Visit Diagnoses Diagnosis Encounter for screening mammogram for malignant neoplasm of breast documented in this encounter Additional Health Concerns Assessment Noted Time PHQ-9 Depression Total Score: 0 11/20/19 24 3:48 PM EDT documented as of this encounter Care Teams Seed Service Advisor Relationship Specialty Start Date End Date Ruben Booker DO [address] [place] [address] PCP - General Internal Medicine 04/21/17 documented as of this encounter
--- OUTSIDE RECORDS SUMMARY | 2025-01-17 14:44 | XMS_ITS | Encounter Summary ---
Author Organization [employer] tem Address [facility] [id number] [address] [place] [address] Care Team Providers Care Racker Octave Board Name Role Phone Ruben Booker DO Primary Care Provider [phone] Encounter Details Date Type Department Care Team (Late st Contact Info) Description 08/24/2022 Orders Only [facility] - [facility] [address] [place] [address] Viktoriya Tarango CMA Encounter for screening mammogram for malignant neoplasm [...] Comments MAMM SCREENING BILATERAL W CAD Routine 08/24/2022 1:03 PM EDT Encounter for screening mammogram for malignant neoplasm of breast documented in this encounter Results * Mammography screening bilateral with CAD (08/24/2022 1:03 PM EDT) Anatomical Region Laterality Modality Breast Bilateral Mammography Asha Tapia JUICE STANDARDIZER-FAMILY AND CONSUMER SCIENCES TEACHER IMG MAMMOGRAPHY ORDERABLES Final Result documented in this encounter Visit Diagnoses Diagnosis Encounter for screening mammogram for malignant neoplasm of breast documented in this encounter Additional Health Concerns Assessment Noted Time PHQ-9 Depression Total Score: 0 08/10/19 23 2:22 PM EDT documented as of this encounter Care Teams Racker Octave Board Relationship Specialty Start Date End Date Ruben Booker DO [address] [place] [address] PCP - General Internal Medicine 04/21/17 documented as of this encounter
--- OUTSIDE RECORDS SUMMARY | 2025-01-17 14:44 | XMS_ITS | Encounter Summary ---
Author Organization [employer] tem Address [facility] [place][id number] [address] [place] [address] Care Team Providers Care Machinist Set Up Name Role Phone Ruben Booker DO Primary Care Provider [phone] Encounter Details Date Type Department Care Team (Late st Contact Info) Description 12/11/2023 Orders Only [facility] - [facility] Medicine [address] [place] [address] Ref Prov, [place] [address] Social History Tobacco Use Types Packs/Day Years [...] Associated Diagnosis Comments DIABETES EYE EXAM Routine 11/14/2023 1:42 PM EDT documented in this encounter Results * DIABETES EYE EXAM (11/14/2023 1:42 PM EDT) us Not In System Ref Prov HEALTH MAINTENANCE Final Result MANUALLY TRANSCRIBED RESULTS documented in this encounter Visit Diagnoses Not on filedocumented in this encounter Additional Health Concerns Assessment Noted Time PHQ-9 Depression Total Score: 0 11/20/19 24 3:48 PM EDT documented as of this encounter Care Teams Machinist Set Up Relationship Specialty Start Date End Date Ruben Booker DO [address] [place] [address] PCP - General Internal Medicine 04/21/17 documented as of this encounter
--- OUTSIDE RECORDS SUMMARY | 2025-01-17 14:44 | XMS_ITS | Encounter Summary ---
Author Organization [employer] tem Address [facility] [id number] [address] 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
--- OUTSIDE RECORDS SUMMARY | 2025-01-17 14:44 | XMS_ITS | Encounter Summary ---
Author Organization [employer] Address [facility] [place][id number] [address] [place] [address] Care Team Providers Care Household Manager Name Role Phone Ruben Booker DO Primary Care Provider [phone] Reason for Visit * Reason Onset Date Comments Labs Only 07/11/2022 Encounter Details Date Type Department Care Team (Late st Contact Info) Description 07/11/2022 [facility]phone [facility] [address] [place] [address] Ruben Booker DO [address] [place] [address] Labs Only Social History Tobacco Use Types Packs/Day Years [...] encounter Miscellaneous Notes * Telephone Encounter - Mely Gutierrezcurtis - 07/11/2022 12:26 PM EST Patient is coming in for a dm appt and would like labs sent to [facility] thanks documented in this encounter Plan of Treatment Not on file documented as of this encounter Visit Diagnoses Not on filedocumented in this encounter Care Teams Household Manager Relationship Specialty Start Date End Date Ruben Booker DO [address] [place] [address] PCP - General Internal Medicine 04/21/17 documented as of this encounter
--- OUTSIDE RECORDS SUMMARY | 2025-01-17 14:44 | XMS_ITS | Encounter Summary ---
Author Organization [employer] Address [facility] [place][id number] [address] 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 No / Unsure 08/04/2022 8:20 AM EDT documented as of this encounter Plan of Treatment Not on file documented as of this encounter Visit Diagnoses Diagnosis Type 1 diabetes mellitus with microalbuminuria (CMS-HCC) documented in this encounter Additional Health Concerns Assessment Noted Time PHQ-9 Depression Total Score: 0 08/05/19 8:28 AM EDT documented as of this encounter Care Teams Take Down Inspector Relationship Specialty Start Date End Date Ruben Booker DO [address] [place] [address] PCP - General Internal Medicine 04/21/17 documented as of this encounter
--- OUTSIDE RECORDS SUMMARY | 2025-01-17 14:44 | XMS_ITS | Encounter Summary ---
Author Organization [employer] tem Address [facility] [id number] [address] [place] [address] Care Team Providers Care Economic Development Director Name Role Phone Ruben Booker DO Primary Care Provider [phone] Encounter Details Date Type Department Care Team (Late st Contact Info) Description 07/24/2023 Telephone [facility] - [facility] [address] [place] [address] Ab Baer CMA Social History Tobacco Use Types Packs/Day [...] documented as of this encounter Care Teams Economic Development Director Relationship Specialty Start Date End Date Ruben Booker DO [address] [place] [address] PCP - General Internal Medicine 04/21/17 documented as of this encounter
--- OUTSIDE RECORDS SUMMARY | 2025-01-17 14:44 | XMS_ITS | Encounter Summary ---
Author Organization [employer] tem Address [facility] [id number] [address] 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
--- OUTSIDE RECORDS SUMMARY | 2025-01-17 14:44 | XMS_ITS | Encounter Summary ---
Author Organization [employer] tem Address [facility] [id number] [address] [place] [address] Care Team Providers Care Curator Name Role Phone Ruben Booker DO Primary Care Provider [phone] Reason for Visit * Reason Onset Date Comments Med Refill 08/11/2022 Encounter Details Date Type Department Care Team (Late st Contact Info) Description 08/11/2022 Refill [facility] - Family Medicine [address] [place] [address] Princess Bhakta CMA Type 1 diabetes mellitus with microalbuminuria ([facility]) (Primary Dx) Social History Tobacco Use Types [...] Diagnosis Type 1 diabetes mellitus with microalbuminuria (CMS-HCC)- Primary documented in this encounter Additional Health Concerns Assessment Noted Time PHQ-9 Depression Total Score: 0 08/10/19 23 2:22 PM EDT documented as of this encounter Care Teams Curator Relationship Specialty Start Date End Date Ruben Booker DO [address] [place] [address] PCP - General Internal Medicine 04/21/17 documented as of this encounter
--- OUTSIDE RECORDS SUMMARY | 2025-01-17 14:44 | XMS_ITS | Encounter Summary ---
Author Organization [facility] Address [address] [facility] [place] [address] Care Team Providers Care Sister Superior Name Role Phone Unavailable Primary Care Provider Unavailabl e Encounter Details Date Type Department Care Team (Latest Contact Info) Description 01/08/2025 Travel Social History Tobacco Use Types Packs/Day Years [...] Office Visit [facility] [address] [place] [address] Regi Moreno MD [address] [place] [address] documented as of this encounter Visit Diagnoses Not on filedocumented in this encounter
--- OUTSIDE RECORDS SUMMARY | 2025-01-17 14:44 | XMS_ITS | Encounter Summary ---
Author Organization [employer] Address [facility] [place]-[id number] [address] [place] [address] Care Team Providers Care Combiner Name Role Phone Ruben Booker DO Primary Care Provider [phone] Reason for Visit * Reason Onset Date Comments Med Refill 04/11/2023 Encounter Details Date Type Department Care Team (Late st Contact Info) Description 04/11/2023 Refill [facility] - [facility] Medicine [address] [place] [address] Princess Bhakta CMA Social History Tobacco Use Types Packs/Day [...] documented as of this encounter Care Teams Combiner Relationship Specialty Start Date End Date Ruben Booker DO [address] [place] [address] PCP - General Internal Medicine 04/21/17 documented as of this encounter
--- OUTSIDE RECORDS SUMMARY | 2025-01-17 14:44 | XMS_ITS | Encounter Summary ---
Author Organization [employer] Address [facility] [place]-[id number] [address] [place] [address] Care Team Providers Care Operations Superintendent Name Role Phone Ruben Booker DO Primary Care Provider [phone] Reason for Visit * Reason Onset Date Comments Med Refill 07/14/2023 Encounter Details Date Type Department Care Team (Late st Contact Info) Description 07/14/2023 Refill [facility] - [facility] [address] [place] [address] JamesFrancine ahn, REMELT SUGAR BOILER Social History Tobacco Use Types Packs/Day Years [...] Miscellaneous Notes * Telephone Encounter - Francine James, REMELT SUGAR BOILER - 07/14/2023 8:58 AM EST Yeimi from [facility] mail in order called with a finally attempt to confirm a RX Reference number [id number] Any questions can call [phone] documented in this encounter Plan of Treatment Not on file documented as of this encounter Visit Diagnoses Not on filedocumented in this encounter Additional Health Concerns Assessment Noted Time PHQ-9 Depression Total Score: 0 02/23/20 3:57 PM EDT documented as of this encounter Care Teams Operations Superintendent Relationship Specialty Start Date End Date Ruben Booker DO [address] [place] [address] PCP - General Internal Medicine 04/21/17 documented as of this encounter
--- OUTSIDE RECORDS SUMMARY | 2025-01-17 14:44 | XMS_ITS | Encounter Summary ---
Author Organization [employer] tem Address [facility] [place]-[id number] [address] [place] [address] Care Team Providers Care Vision Therapist Name Role Phone Ruben Booker DO Primary Care Provider [phone] Encounter Details Date Type Department Care Team (Late st Contact Info) Description 07/01/2024 Orders Only [facility] - [facility] [address] [place] [phone] Ruben Booker DO [address] [place] [address] Bipolar II disorder ([facility]) Social History Tobacco Use Types Packs/Day Years [...] encounter Visit Diagnoses Diagnosis Bipolar II disorder ([facility]) Other bipolar disorders documented in this encounter Additional Health Concerns Assessment Noted Time PHQ-9 Depression Total Score: 0 06/26/19 25 4:15 PM EST documented as of this encounter Care Teams Vision Therapist Relationship Specialty Start Date End Date Ruben Booker DO [address] [place] [id number] PCP - General Internal Medicine 04/21/17 documented as of this encounter
--- OUTSIDE RECORDS SUMMARY | 2025-01-17 14:44 | XMS_ITS | Encounter Summary ---
Author Organization [employer] tem Address [facility] [place]-[id number] [address] [place] [address] Care Team Providers Care Fixed Assets Accountant Name Role Phone Ruben Booker DO Primary Care Provider [phone] Encounter Details Date Type Department Care Team (Late st Contact Info) Description 02/23/2023 Orders Only [facility] - [facility] Medicine [address] [place] [address] Ruben Booker DO [address] [place] [address] Social History Tobacco Use Types Packs/Day Years [...] Priority Date/Time Associated Diagnosis Comments COLOGUARD Routine 01/22/2021 12:04 PM EDT documented in this encounter Results * COLOGUARD (01/22/2021 12:04 PM EDT) Ruben Booker DO HEALTH MAINTENANCE Final Result MANUALLY TRANSCRIBED RESULTS documented in this encounter Visit Diagnoses Not on filedocumented in this encounter Additional Health Concerns Assessment Noted Time PHQ-9 Depression Total Score: 0 02/23/20 23 3:57 PM EDT documented as of this encounter Care Teams Fixed Assets Accountant Relationship Specialty Start Date End Date Ruben Booker DO [address] [place] [id number] PCP - General Internal Medicine 04/21/17 documented as of this encounter
--- OUTSIDE RECORDS SUMMARY | 2025-01-17 14:44 | XMS_ITS | Encounter Summary ---
Author Organization [employer] [facility] Address [id number] [address] 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[facility]) Social History Tobacco Use Types Packs/Day [...] of this encounter Visit Diagnoses Diagnosis Essential hypertension Unspecified essential hypertension 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
--- OUTSIDE RECORDS SUMMARY | 2025-01-17 14:47 | XMS_ITS | CCD ---
Author Organization [facility] Care Team Providers Care Isotope Technologist Name Role Phone Adela Stein Unavailable SAADIA, DR OSUNA Attending Unavailable YUEMIL, DR OSUNA Admitting Unavailable WEST, DR MADISON Dixon Consulting Unavailable HOLLIE, DR LYNN Acuña Attending Unavailable HOLLIE, DR LYNN Acuña Admitting Unavailable HOLLIE, DR LYNN Acuña Consulting Unavailable HANNAH Winter Attending Provider Elisabet Winter Attending Unavailable Elisabet Winter Admitting Unavailable NO FAMILY, PHYSICIAN Primary Care Unavailable Unavailable Primary Care Provider UnavailEnrrique Singh DO Primary Care Provider [phone] ENRRIQUE ZEE Attending Unavailable ENRRIQUE ZEE Referring Unavailable YUHAS, ENRRIQUE Casillas Primary Care Unavailable YUENRRIQUE STEIN Attending Unavailable YUHAENRRIQUE Morales Referring Unavailable YUHAS, ENRRIQUE Casillas Primary Care Unavailable YUHAS, ENRRIQUE Casillas Referring Unavailable YUHAS, ENRRIQUE Casillas Primary Care Unavailable YUHAS, ENRRIQUE Casillas Referring Unavailable YUHAS, ENRRIQUE Casillas Primary Care Unavailable YuhaEnrrique morales DO Primary Care Provider TEQUILA SHORT Attending Unavailable REGI PANDEY Attending Unavailable REGI PANDEY Attending Unavailable ALOK LIGHT Attending Unavailable REGI PANDEY Attending Unavailable NO FAMILY, PHYSICIAN Primary Care Provider Unava ilable Yana Linh YOUNG Attending Provider [phone] Allergies Allergy Classification Reported Allergen(s) Allergy Type Date of Onset Reaction(s) Facility (20 sources) Ciprofloxacin; Translations: [CIPROFLOXACIN] Drug Allergy 04-21-20 17 hives, GI intolerance [facility] (1 source) Penicillin Drug Allergy very sick from this antibiotic [facility] Other (2 sources) Ciprofloxacin Drug Allergy 07-17-19 15 [facility] (8 sources) Penicillins; Translations: [PENICILLINS] Drug allergy (disorder) 07-10-19 15 Nausea [facility] (1 source) Ciprofloxacin Drug Allergy 02-17-20 24 [facility] (1 source) Penicillins Drug allergy (disorder) 02-17-20 24 [facility] (13 sources) Penicillins Drug Allergy 12-08-19 21 Hives, Nausea Only [facility] (1 source) Penicillins Propensity to adverse reactions to drug 12-08-19 21 Nausea [facility] (1 source) Penicillins Propensity to adverse reactions to drug 12-08-19 21 Nausea [facility] Medications Current Medications Medication Drug Class(es) Dates Sig (Normalized) Sig (Original) fluorouracil 50 mg/ml topical cream (16 sources) Nucleoside Metabolic Inhibitor Start: 03-04-2024 fluorouracil (Efudex) 5 % cream Indications: Actinic keratosis Apply to directed areas on the chest twice a day x 14 days. Dispense 30 day supply but only use for 14 days. 40 g 03/04/2024 Active FLUoxetine 10 mg oral capsule (5 sources) Serotonin Reuptake Inhibitor Start: 06-02-2024 FLUoxetine (PROzac) 10 MG capsule 06/02/2024 Active fluticasone propionate 0.05 mg/actuat metered dose nasal spray (3 sources) Corticosteroid Start: 02-22-2023 take 1 spray(s) nasal route in the morning fluticasone propionate (FLONASE) 50 mcg/actuation nasal spray Administer 1 spray into each nostril in the morning. 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 MAX 10 UNITS DAILY 40 mL 3 07/20/2024 Active Start: 02-17-2024 inject 10 [IU] by zapata bcutaneous injection once daily at bedtime Insulin Lispro (Humalog Kwikpen Insulin) 100 unit/mL insulin pen Active 10 UNIT SUBCUT Daily at bedtime February 17, 2024 12:00am Complies with drug therapy Start: 12-01-2023 End: 01-02-2025 inject 5 [IU] by subcutaneous injection three times daily at mealtime HumaLOG KwikPen Insulin 100 unit/mL insulin pen INJECT 5 UNITS SUBCUTANEOUSLY 3 TIMES DAILY WITH MEALS 15 mL 3 12/01/2023 01/02/2025 Discontinued Start: 07-20-2023 End: 07-20-2024 inject 0.05 mL by subcutaneous injection once daily insulin lispro (HumaLOG) 100 unit/mL injection Indications: 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 Max 10 units per day 30 mL 1 07/20/2023 07/20/2024 Discontinued HumaLOG 100 UNIT /ML as directed Subcutaneous pump Active insulin lispro (HumaLOG) 100 UNIT/ML injection (13 sources) inject 30 [IU] by subcutaneous injection once daily insulin lispro (HumaLOG) 100 UNIT/ML injection inject 30 units daily VIA INSULIN PUMP Subcutaneous for 28 Active lamoTRIgine 150 mg oral tablet (20 sources) Mood Stabilizer, Anti-epileptic Agent Start: Lamotrigine 150 mg tablet Active MG PO January 17, 2025 12:00am Complies with drug therapy Start: 06-23-2022 End: 01-17-2025 take 1 tablet by mouth once daily Lamotrigine 200 mg tablet Discontinued 200 MG PO Daily February 17, 2024 12:00am January 17, 2025 2:07pm End: 06-11-2024 lamoTRIgine (LaMICtal) 25 MG tablet Take by mouth 06/11/2024 Discontinued lisdexamfetamine dimesylate 20 mg oral capsule (18 sources) Central Nervous System Stimulant Start: 01-17-2025 Lisdexamfetamine 20 mg capsule Active MG PO January 17, 2025 12:00am Complies with drug therapy Start: 07-06-2022 End: 01-17-2025 take 1 capsule by mouth once daily in the morning lisdexamfetamine (VYVANSE) 30 mg capsule Indications: Bipolar II disorder ([facility]) Take 1 capsule (30 mg total) by mouth every morning. Max Daily Amount: 30 mg 90 capsule 07/01/2024 Active lisinopril 10 mg oral tablet (20 sources) Angiotensin Converting Enzyme Inhibitor Start: 10-17-2023 take 1 tablet by mouth once daily Lisinopril 10 mg tablet Active 10 MG PO Daily February 17, 2024 12:00am Complies with drug therapy take 1 tablet by luca th every twenty-four hours Lisinopril 10 MG 1 tablet Orally Once a day Active Multiple Vitamin (multivitamin) capsule (13 sources) Multiple Vitamin (multivitamin) capsule 1 (one) time each day at the same time Active phenazopyridine hydrochloride 200 mg oral tablet (1 source) Start: 07-24-19 take 1 tablet by mouth every eight hours Pyridium 200 MG 1 tablet after meals Orally Three times a day for 2 day(s) Jul, Active pravastatin sodium 10 mg oral tablet (1 source) HMG-CoA Reductase Inhibitor take 1 tablet by mouth two times weekly Pravastatin Sodium 10 MG 1 tablet Orally TWICE A WEEK Active propranolol hydrochloride 10 mg oral tablet (11 sources) beta-Adrenergic Carley Start: 02-09-20 take 1 tablet by mouth twice daily as needed Propranolol 10 mg tablet Active 10 MG PO Twice daily as needed February 17, 2024 12:00am Complies with drug therapy propranolol (Ind eral) 10 MG tablet every 8 (eight) hours Active rosuvastatin calcium 5 mg oral tablet (19 sources) HMG-CoA Reductase Inhibitor Start: 01-28-2023 take 1 tablet by mouth once daily Rosuvastatin 5 mg tablet Active 5 MG PO Daily February 17, 2024 12:00am Complies with drug therapy sulfamethoxazole 800 mg / trimethoprim 160 mg oral tablet (1 source) Dihydrofolate Reductase Inhibitor Antibacterial, Sulfonamide Antimicrobial Start: 07-23-2022 take 1 tablet by mouth every twelve hours Bactrim DS 800-160 MG 1 tablet Orally Twice a day for 5 days Jul, Active ziprasidone 20 mg oral capsule (20 sources) Atypical Antipsychotic Start: 07-06-2022 take 1 capsule by mouth twice daily Ziprasidone Hcl 20 mg capsule Active 20 MG PO Twice daily February 17, 2024 12:00am Complies with drug therapy End: 06-11-2024 ziprasidone (Geodon) 40 MG c apsule every 12 (twelve) hours 06/11/2024 Discontinued Completed/Discontinued Medications Medication Drug Class(es) Dates Sig (Normalized) Sig (Original) cefTRIAXone (1 source) Cephalosporin Antibacterial Start: 11-27-2017 Rocephin 500 mg Nov, 500 mg cephalexin 500 mg oral capsule (3 sources) Cephalosporin Antibacterial Start: 02-17-2024 End: 01-17-2025 take 1 capsule by mouth three times daily Cephalexin 500 mg capsule Discontinued 500 MG PO Three times daily 09 12February 17, 2024 12:00am January 17, 2025 2:07pm Problems Active Problems Problem Classification Problem Date Documented Date Episodic/Chronic Chronic kidney disease (2 sources) Chronic kidney disease stage 2; Translations: [Chronic kidney disease, stage 2 (mild)] Chronic Diabetes mellitus with complications (9 sources) Type 1 diabetes mellitus; Translations: [Type 1 diabetes mellitus with diabetic chronic kidney disease] Onset: 3 07-11-2022 Chronic Diabetes mellitus without complication (1 source) Diabetes mellitus Onset: 4 Chronic Esophageal disorders (3 sources) Gastroesophageal reflux disease; Translations: [Gastro-esophageal reflux disease without esophagitis] Onset: 3 07-11-2022 Chronic Essential hypertension (4 sources) Essential hypertension; Translations: [Essential (primary) hypertension] Onset: 3 06-26-2024 Chronic Hypertension with complications and secondary hypertension (1 source) Malignant hypertensive chronic kidney disease; Translations: [Hypertensive chronic kidney disease with stage 1 through stage 4 chronic kidney disease, or unspecified chronic kidney disease] Chronic Mood disorders (5 sources) Bipolar II disorder; Translations: [Bipolar II disorder] Onset: 7 06-26-2024 Chronic Neoplasms of unspecified nature or uncertain behavior (4 sources) Neoplastic disease; Translations: [Neoplasm of unspecified behavior of bone, soft tissue, and skin] 03-04-2024 Episodic Other aftercare (2 sources) Removal of sutures done; Translations: [Encounter for removal of sutures] 06-11-2024 Episodic Other diseases of kidney and ureters (1 source) Hyperparathyroidism due to renal insufficiency; Translations: [Secondary hyperparathyroidism of renal origin] Chronic Other non-epithelial cancer of skin (6 sources) Basal cell carcinoma of spiritism; Translations: [Basal cell carcinoma of skin of other parts of face] 05-09-2024 Episodic Other skin disorders (4 sources) Actinic keratosis; Translations: [Actinic keratosis] 03-04-2024 Episodic Other skin disorders (4 sources) Lentiginosis; Translations: [Other melanin hyperpigmentation] 03-04-2024 Episodic Other skin disorders (4 sources) Seborrheic keratosis; Translations: [Other seborrheic keratosis] 03-04-2024 Episodic Other skin disorders (2 sources) Sebaceous hyperplasia; Translations: [Other specified follicular disorders] 01-08-2025 Episodic Other upper respiratory disease (3 sources) Allergic rhinitis; Translations: [Allergic rhinitis, unspecified] Onset: 3 07-11-2022 Chronic Urinary tract infections (1 source) Acute cystitis without hematuria Episodic Past or Other Problems Problem Classification Problem Date Documented Da te Episodic/Chronic Genitourinary symptoms and ill-defined conditions (4 sources) Dysuria; Translations: [Frequency of micturition] Onset: 11-20-2023 Episodic Mood disorders (3 sources) Mood disorders Onset: 06-26-2024 06-26-2024 Other screening for suspected conditions (not mental disorders or infectious disease) (5 sources) Encounter for screening mammogram for malignant neoplasm of breast; Translations: [ENC SCR MAMMO MALIG NEOPLASM BREAST] Onset: 08-23-2022 Episodic Results Test Name Value Interpretation Reference Range Facility No Panel Informationon 01-08 Type of biopsy: tangential Informed consent: discussed [...] taken Amount of lidocaine [facility]: [facility].0 [facility] COMPREHENSIVE METABOLIC PANE [place] 06-26-2024 Albumin [Mass/Vol] 4.2 g/dL Normal 3.2-5.3 [facility] Comment on above: Performed By: #### H A1C, CMP #### [facility] ([id number]) [address], [address] [place] [address] ALP [Catalytic activity/Vol] 55 U/L Normal 39-130 [facility] Comment on above: Performed By: #### H A1C, CMP #### [facility] ([id number]) [address], [address] [place] [address] ALT [Catalytic activity/Vol] 19 U/L Normal 0-31 [facility] Comment on above: Performed By: #### H A1C, CMP #### [facility] ([id number]) [address], [address] [place] [address] Anion gap [Moles/Vol] 5 mmol/L Normal 5-15 [facility] Comment on above: Performed By: #### H A1C, CMP #### [facility] ([id number]) [address], [address] [place] [address] AST [Catalytic activity/Vol] 23 U/L Normal 0-41 [facility] Comment on above: Performed By: #### H A1C, CMP #### [facility] ([id number]) [address], [address] [place] [address] Bilirubin [Mass/Vol] 0.4 mg/dL Normal 0.3-1.2 [facility] Comment on above: Performed By: #### H A1C, CMP #### [facility] ([id number]) [address], [address] [place] [address] Calcium [Mass/Vol] 9.3 mg/dL Normal 8.5-10.5 [facility] Comment on above: Performed By: #### H A1C, CMP #### [facility] ([id number]) [address], [address] [place] [address] Chloride [Moles/Vol] 97 mmol/L Low 98-109 [facility] Comment on above: Performed By: #### H A1C, CMP #### [facility] ([id number]) [address], [address] [place] [address] CO2 [Moles/Vol] 33 mmol/L High 22-32 [facility] Comment on above: Performed By: #### H A1C, CMP #### [facility] ([id number]) [address] [place] [address] Creatinine [Mass/Vol] 1.12 mg/dL High 0.40-1.00 [facility] Comment on above: Result Comment: METH OD TRACEABLE TO IDMS STANDARD Performed By: #### H A1C, CMP #### [facility] ([id number]) [address], [address] [place] [address] GFR/1.73 sq M.predicted among non-blacks MDRD (S/P/Bld) [Vol rate/Area] 56 mL/min/{1.73_m2} Low >59 [facility] Comment on above: Result Comment: Reported eGFR is based on the CKD-EPI 2020 equation that does not use a race coefficient. Performed By: #### H A1C, CMP #### [facility] ([id number]) [address], [address] [place] [address] Glucose [Mass/Vol] 130 mg/dL High 65-99 [facility] Comment on above: Performed By: #### H A1C, CMP #### [facility] ([id number]) [address] [place] [address] Potassium [Moles/Vol] 4.3 mmol/L Normal 3.5-5.0 [facility] Comment on above: Performed By: #### H A1C, CMP #### [facility] ([id number]) [address] [place] [address] Protein [Mass/Vol] 6.8 g/dL Normal 6.0-8.0 [facility] Comment on above: Performed By: #### H A1C, CMP #### [facility] ([id number]) [address], [address] [place] [address] Sodium [Moles/Vol] 135 mmol/L Normal 134-146 [facility] Comment on above: Performed By: #### H A1C, CMP #### [facility] ([id number]) [address] [address] Urea nitrogen [Mass/Vol] 18 mg/dL Normal 5-23 [facility] Comment on above: Performed By: #### H A1C, CMP #### [facility] ([id number]) [address] [address] HGB A1C (GLYCO-HGB)on 2024 Glucose [Mass/Vol] 140 mg/dL Normal [facility] Comment on above: Performed By: #### H A1C, CMP #### [facility] ([id number]) [address] [address] HbA1c (Bld) [Mass fraction] 6.5 % High 4.4-5.6 [facility] Comment on above: Result Comment: NOTE ADA Guidelines Result HgbA1c Normal : less than 5.7 % Prediabetes : 5.7 % to 6.4 % Diabetes : > 6.4 % Use with caution in patients with abnormal hemoglobin variants as the half-life of red blood cells and in vivo glycation rates are affected. Performed By: #### H A1C, CMP #### [facility] ([id number]) [address] [address] No Panel Informationon 05-29 Lesion length (cm): 1 Lesion width (cm): 0.7 Margin per side (cm): 0.4 Total excision diameter (cm): 1.8 Informed consent: discussed and consent obtained Informed consent comment: Risks and possible complications were discussed as noted on the consent form. The consent form was signed prior to the procedure. Timeout: patient name, date of , surgical site, and procedure verified Timeout comment: Patient and provider identified site. Site was marked and excision was drawn out. Photo was taken and shown to patient, patient verified this is the correct site. Procedure prep: Patient was prepped and draped in usual sterile fashion (The planned incision lines were drawn along relaxed skin tension lines, if possible, to minimize scarring and deformity of surrounding structures.) Prep type: Chlorhexidine Anesthesia: the lesion was anesthetized in a standard fashion Anesthesia comment: The local anesthetic was injected to create a field block at the site of the procedure. Anesthetic: 1% lidocaine w/ epinephrine 1-100,000 buffered w/ 8.4% NaHCO3 Instrument used: #15 blade Instrument used comment: Incisions were made as drawn, and the surrounding tissue was undermined until the skin edges could be approximated without undue tension. Any tissue redundancies were removed. Hemostasis achieved with: electrodesiccation Additional details: Amount of lidocaine used: 11.0 ml Estimated blood loss: 1.0 ml [facility] Complexity: Intermediate Final length (cm): 4.3 Reason for type of repair: allow closure of the large defect Undermining: edges undermined Undermining comment: The surrounding tissue was undermined until the skin edges could be approximated without undue tension. Any tissue redundancies were removed. Subcutaneous layers (deep stitches): Suture size: 3-0 Suture type comment: Biosyn Stitches: Buried horizontal mattress (Closure was performed in a layered fashion with subcutaneous tissue closed first using tension-bearing absorbable sutures to the level of the superficial fascia.) Fine/surface layer approximation (top stitches): Suture size: 4-0 Suture type: Prolene (polypropylene) Stitches: simple running Stitches comment: Epicuticular skin sutures were then placed with minimal tension. Outcome: patient tolerated procedure well with no complications Post-procedure details: sterile dressing applied and wound care instructions given Post-procedure details comment: It was emphasized to the patient to contact the office for any signs of infection, uncontrollable bleeding, or complications. Dressing type: bandage [facility] No Panel Informationon 05-09 Consent obtained: written (The rationale for Mohs as well as the risks, benefits, and alternatives. The risks of infection, scarring, bleeding, prolonged wound healing, incomplete removal, allergy to anesthesia or meds, nerve injury, and recurrence were addressed.) Junior Protocol: Procedure explained and questions answered to patient or proxy's satisfaction: Yes Test results available and properly labeled: Yes Pathology report reviewed: Yes Photo or diagram used for site identification: Yes Site/side marked: Yes Anticoagulation: Is the patient taking prescription anticoagulant and/or aspirin prescribed/recommended by a physician? No Anesthesia: Anesthesia method: local infiltration Local anesthetic: lidocaine 1% WITH epi and sodium bicarbonate Procedure Details: Biopsy accession number: [id number] Biopsy lab: [facility] Date of biopsy: 03/04/2024 Frozen section biopsy performed: Yes Specimen debulked: No Pre-Op diagnosis: basal cell carcinoma MohsAIQ Surgical site (if tumor spans multiple areas, please select predominant area): spiritism Surgery side: right Surgical site (from skin exam): Right [place] Pre-operative length (cm): 1.4 Pre-operative width (cm): 0.4 Indications for Mohs surgery: anatomic location where tissue conservation is critical Other indications for Mohs surgery: tumor size is greater than 1 cm on the face Previously treated? No Mohs Appropriate Use Criteria Score: 7 Details of micrographic surgery: Mohs accession number: [id number] Micrographic Surgery Details: Post-operative length (cm): 1.5 Post-operative width (cm): 1.2 Number of Mohs stages: 2 Stage 1 Comments: The area was prepped with Betadine, draped in a sterile fashion, and infiltrated with local anesthetic. Sterile technique was used throughout the procedure. The marked area of clinical tumor with a small rim of clinically normal surrounding skin was removed using Mohs technique with beveled edges. Hash barnett were placed for orientation of the specimen. Hemostasis was achieved with electrodessication. After hemostasis, the defect was measured and recorded, a temporary sterile dressing was placed over the wound, and the patient was escorted to the waiting area. The specimen was oriented, mapped, and if necessary, divided into sections. A Mohs map was prepared. The specimen was placed in a labeled elba dish and was taken to the Mohs lab where it was chromacoded and processed. Mohs sections were prepared with serial tissue sections, stained, and evaluated by Dr. Light for interpretation of deep and peripheral margins. The Mohs map was marked accordingly. Amount of lidocaine used: 1.0 cc Estimated blood loss: minimal Defect size: 1.5 x 1.1 cm Number of blocks per stage: 1 Number of positive blocks: 1 Tumor features identified on Mohs section: basal carcinoma Tumor features identified on Mohs section comment: superficial and nodular pattern Depth of defect after stage: dermis Stage 2 Comments: The patient returned to the procedure room, the dressing was removed, the tumor area was re-prepped and draped, and anesthesia was assessed and augmented as necessary. A layer of tissue around the positive margin(s) was removed, and the tissue was oriented, mapped, and processed in an identical fashion as for Stage 1. Hemostasis was achieved and dressing placed as in Stage 1. The patient was escorted to the waiting area. As with Stage 1, Mohs sections were prepared with serial tissue sections, stained, and evaluated by Dr. Light for interpretation of deep and peripheral margins. The Mohs map was updated. Assistants: Indra Banks MA Amount of lidocaine used: 1.0 cc Estimated blood loss: minimal Defect size: 1.5 x 1.2 cm Number of blocks: 1 Number of positive blocks: 0. Tumor free margins were obtained and the Mohs procedure was considered complete. Tumor features identified on Mohs section: no tumor identified Depth of defect after stage: dermis Patient tolerance of procedure: tolerated well, no immediate complications Reconstruction: Was the defect reconstructed?: No Antibiotics: Were antibiotics given on the day of surgery?: No [place] [facility] No Panel Informationon 03-04 [place] Type of biopsy: tangential Informed consent: discussed [...] taken Amount of lidocaine used: 1.0 cc [place] [facility] Type of biopsy: tangential Informed consent: discussed [...] taken Amount of lidocaine used: 1.0 cc WO [employer] [facility] Urine Cultureon 02-17-2024 Bacteria identified Cx Nom (U) <9,000 colonies/ml mixed bacterial skin contaminants 2 Days PERFORMED BY: [place] [address] PATHOLOGIST LICENSED OCCUPATIONAL THERAPIST SHEA CANTOR M.D. Normal [facility] Comment on above: Performed By: #### C UU #### [address] COMPREHENSIVE METABOLIC PANE [facility] 11-20-2023 Albumin [Mass/Vol] 4.3 g/dL Normal 3.2-5.3 [facility] Comment on above: Performed By: #### H A1C, 77052-6, CMP #### [facility] ([id number]) [address], [address] [place] [address] ALP [Catalytic activity/Vol] 59 U/L Normal 39-130 [facility] Comment on above: Performed By: #### H A1C, 50928-5, CMP #### [facility] ([id number]) [address] [facility] [address], [address] [place] [address] ALT [Catalytic activity/Vol] 20 U/L Normal 0-31 [facility] Comment on above: Performed By: #### H A1C, 43186-1, CMP #### [facility] ([id number]) [address], [address] [place] [address] Anion gap [Moles/Vol] 7 mmol/L Normal 5-15 [facility] Comment on above: Performed By: #### H A1C, 33820-0, CMP #### [facility] ([id number]) [address], [address] [place] [address] AST [Catalytic activity/Vol] 22 U/L Normal 0-41 [facility] Comment on above: Performed By: #### H A1C, 98007-3, CMP #### [facility] ([id number]) [address], [address] [place] [address] Bilirubin [Mass/Vol] 0.4 mg/dL Normal 0.3-1.2 [facility] Comment on above: Performed By: #### H A1C, 85321-0, CMP #### [facility] ([id number]) [address], [address] [place] [address] Calcium [Mass/Vol] 9.4 mg/dL Normal 8.5-10.5 [facility] Comment on above: Performed By: #### H A1C, 17773-5, CMP #### [facility] ([id number]) [address], [address] [place] [address] Chloride [Moles/Vol] 97 mmol/L Low 98-109 [facility] Comment on above: Performed By: #### H A1C, 23410-6, CMP #### [facility] ([id number]) [address], [address] [place] [address] CO2 [Moles/Vol] 29 mmol/L Normal 22-32 [facility] Comment on above: Performed By: #### H A1C, 43200-7, CMP #### [facility] ([id number]) [address], [address] [place] [address] Creatinine [Mass/Vol] 0.99 mg/dL Normal 0.40-1.00 [facility] Comment on above: Result Comment: METH OD TRACEABLE TO IDMS STANDARD Performed By: #### H A1C, 93249-3, CMP #### [facility] ([id number]) [address], [address] [place] [address] GFR/1.73 sq M.predicted among non-blacks MDRD (S/P/Bld) [Vol rate/Area] 65 mL/min/{1.73_m2} Normal >59 [facility] Comment on above: Result Comment: Reported eGFR is based on the CKD-EPI 2020 equation that does not use a race coefficient. Performed By: #### H A1C, 36378-1, CMP #### [facility] ([id number]) [address], [address] [place] [address] Glucose [Mass/Vol] 157 mg/dL High 65-99 [facility] Comment on above: Performed By: #### H A1C, 12243-1, CMP #### [facility] ([id number]) [address], [address] [place] [address] Potassium [Moles/Vol] 4.0 mmol/L Normal 3.5-5.0 [facility] Comment on above: Performed By: #### H A1C, 12734-2, CMP #### [facility] ([id number]) [address], [address] [place] [address] Protein [Mass/Vol] 6.9 g/dL Normal 6.0-8.0 [facility] Comment on above: Performed By: #### H A1C, 45709-2, CMP #### [facility] ([id number]) [address], [address] [place] [address] Sodium [Moles/Vol] 133 mmol/L Low 134-146 [facility] Comment on above: Performed By: #### H A1C, 38772-4, CMP #### [facility] ([id number]) [address], [address] [place] [address] Urea nitrogen [Mass/Vol] 15 mg/dL Normal 5-23 [facility] Comment on above: Performed By: #### H A1C, 90300-6, CMP #### [facility] ([id number]) [address], [address] [place] [address] HGB A1C (GLYCO-HGB)on 2023 Glucose [Mass/Vol] 143 mg/dL Normal [facility] Comment on above: Performed By: #### H A1C, 96912-0, CMP #### [facility] ([id number]) [address], [facility] [address] [place] [address] HbA1c (Bld) [Mass fraction] 6.6 % High 4.4-5.6 [facility] Comment on above: Result Comment: NOTE ADA Guidelines Result HgbA1c Normal : less than 5.7 % Prediabetes : 5.7 % to 6.4 % Diabetes : > 6.4 % Use with caution in patients with abnormal hemoglobin variants as the half-life of red blood cells and in vivo glycation rates are affected. Performed By: #### H A1C, 93698-3, CMP #### [facility] ([id number]) [address], [address] [place] [address] Lipid 1996 panelon Cholesterol [Mass/Vol] 178 mg/dL Normal 150-200 [facility] Comment on above: Performed By: #### H A1C, 43926-1, CMP #### [facility] ([id number]) [address], [address] [place] [address] Cholesterol in HDL [Mass/Vol] 106 mg/dL Normal >39 [facility] Comment on above: Result Comment: HDL <40 mg/dL - High Risk HDL > or = 40mg/dL- Desirable HDL >60 mg/dL - Negative Risk Performed By: #### H A1C, 24755-8, CMP #### [facility] ([id number]) [address], [address] [place] [address] Cholesterol in LDL [Mass/Vol] 65 mg/dL Normal <130 [facility] Comment on above: Result Comment: LDL <100 mg/dL - Desirable LDL >160 mg/dL - High Risk Performed By: #### H A1C, 60343-6, CMP #### [facility] ([id number]) [address], [address] [place] [address] Cholesterol in VLDL [Mass/Vol] 7 mg/dL Normal 0-30 [facility] Comment on above: Performed By: #### H A1C, 90733-8, CMP #### [facility] ([id number]) [address], [address] [place] [address] CHOLESTEROL:HDL 1.7 Normal 1.0-5.0 [facility] Comment on above: Performed By: #### H A1C, 56589-5, CMP #### [facility] ([id number]) [address], [address] [place] [address] Triglyceride [Mass/Vol] 37 mg/dL Normal 27-150 [facility] Comment on above: Performed By: #### H A1C, 87127-8, CMP #### [facility] ([id number]) [address], [address] [place] [address] MICROALBUMIN - ALBUMIN:CREAT ININE URINE RATIOon 07-01-2024 ALB/CREAT RATIO NOT CALCULATED Normal 0.0-30.0 [facility] Comment on above: Result Comment: Result for Albumin/Creatinine Ratio cannot be reliably calculated because urine albumin and or urine creatinine is below the detection limit of the assay. Performed By: #### M ALBU #### [facility] ([id number]) [address], [address] [place] [address] Albumin DL <= 20 mg/L (U) [Mass/Vol] mg/dL Normal 0.0-1.9 [facility] Comment on above: Performed By: #### M ALBU #### [facility] ([id number]) [address] [facility], [address] [place] [address] URINE CREAT 26.57 mg/dL Normal [facility] Comment on above: Performed By: #### M ALBU #### [facility] ([id number]) [address], [address] [place] [address] MG MAMM SCREEN 3D HERBER CADon 08-23-2022 MG MAMM SCREEN 3D HERBER CAD Patient: JOSH FERRARI Exam Date: 08/23/2022 : 1965 Gender:F Ordering : DR LYNN BROWNE Admission #: [id number] Family : Order #: [id number] CLICK HERE TO VIEW EXAM RADIOLOGY REPORT PROCEDURE: MAMMOGRAM SCREENING 3D BILATERAL CAD COMPARISON: DIGITIZED_MAMMO, 12/17/2007. MG MAMM HERBER SCRN W CAD DIG, 12/11/2012. INDICATIONS: Screening mammography Calculator Name NCI Breast Cancer Risk Assessment Tool 5 Year Breast Cancer Risk 1.20% Lifetime Breast Cancer Risk 6.70% Personal Breast Cancer No Personal Ovarian Cancer No Treatments None Family Cancers None LOCATION: [facility] BREAST COMPOSITION: Extremely dense, which lowers the sensitivity of mammography. FINDINGS: DIAGNOSTIC CATEGORY 2--BENIGN FINDING. NO CHANGE FROM COMPARISON. Scattered benign-appearing calcifications are present. Scattered benign-appearing lymph nodes are present. RIGHT BREAST: No significant suspicious finding. LEFT BREAST: No significant suspicious finding. RECOMMENDATIONS: ROUTINE MAMMOGRAM AND CLINICAL EVALUATION IN 12 MONTHS. PLEASE NOTE: A NORMAL MAMMOGRAM DOES NOT EXCLUDE THE POSSIBILITY OF BREAST CANCER. A CLINICALLY SUSPICIOUS PALPABLE LUMP SHOULD BE BIOPSIED. Dictated by: Madison Hurt MD on 08/24/2022 at 08:02 Approved by: Madison Hurt MD on 08/24/2022 at 08:04 Normal [facility] Urinalysis - AUTOMATEDon Appearance (U) CLEAR [employer] Track Other Bilirubin Ql (U) Negative [employer] Other Color (U) LT YELLOW [facility] Other Glucose Ql (U) Negative [employer] Track Other Hemoglobin Ql (U) TRACE-INTACT [facility] Other Ketones Ql (U) Negative [employer] Track Other Leukocyte esterase Test strip Ql (U) Negative [employer] Other Nitrite Ql (U) Negative [employer] Other pH (U) 7.0 [pH] [employer] Other Protein Ql (U) Negative [employer] Track Other Specific gravity (U) [Rel density] 1.015 [facility] Other Urobilinogen (U) [Mass/Vol] 0.2 E.U [facility] Other Urinalysis - AUTOMATED [facility] Other BASIC METABOLIC PANELon 07-22 BUN/CREATININE RATIO NOT APPLICABLE Normal 6-22 [facility] Comment on above: Order Comment: FASTI NG:YES FASTING: YES Performed By: #### 1 0165, 496 #### [facility] [address], [address] [place] [address] Major Account Manager: Dillon Baez MD Calcium [Mass/Vol] 9.3 mg/dL Normal 8.6-10.4 [facility] Comment on above: Order Comment: FASTI NG:YES FASTING: YES Performed By: #### 1 0165, 496 #### [facility] [address], [address] [place] [address] Major Account Manager: Dillon Baez MD Chloride [Moles/Vol] 97 mmol/L Low 98-110 [facility] Comment on above: Order Comment: FASTI NG:YES FASTING: YES Performed By: #### 1 0165, 496 #### [facility] [address], [address] [place] [address] Major Account Manager: Dillon Baez MD CO2 [Moles/Vol] 29 mmol/L Normal 20-32 [facility] Comment on above: Order Comment: FASTI NG:YES FASTING: YES Performed By: #### 1 0165, 496 #### [facility] [address], [address] [place] [address] Major Account Manager: Dillon Baez MD Creatinine [Mass/Vol] 0.95 mg/dL Normal 0.50-1.05 [facility] Comment on above: Order Comment: FASTI NG:YES FASTING: YES Result Comment: For patients >49 years of age, the reference limit for Creatinine is approximately 13% higher for people identified as -Dutch. Performed By: #### 1 0165, 496 #### [facility] [address], [address] [place] [address] Major Account Manager: Dillon Baez MD eGFR NON-AFR. ARGENTINE 66 mL/min/1.73m2 Normal > OR = 60 [facility] Comment on above: Order Comment: FASTI NG:YES FASTING: YES Performed By: #### 1 0165, 496 #### [facility] [address], [address] [place] [address] Major Account Manager: Dillon Baez MD GFR/1.73 sq M.predicted among blacks MDRD (S/P/Bld) [Vol rate/Area] 77 mL/min/{1.73_m2} Normal > OR = 60 [facility] Comment on above: Order Comment: FASTI NG:YES FASTING: YES Performed By: #### 1 0165, 496 #### [facility] [place] [address] Major Account Manager: Dillon Baez MD Glucose [Mass/Vol] 95 mg/dL Normal 65-99 [facility] Comment on above: Order Comment: FASTI NG:YES FASTING: YES Result Comment: Fasting reference interval Performed By: #### 1 0165, 496 #### [facility] [place] [address] Major Account Manager: Dillon Baez MD Potassium [Moles/Vol] 4.2 mmol/L Normal 3.5-5.3 [facility] Comment on above: Order Comment: FASTI NG:YES FASTING: YES Performed By: #### 1 0165, 496 #### [facility] [place] [address] Major Account Manager: Dillon Baez MD Sodium [Moles/Vol] 135 mmol/L Normal 135-146 [facility] Comment on above: Order Comment: FASTI NG:YES FASTING: YES Performed By: #### 1 0165, 496 #### [facility] [place] [address] Major Account Manager: Dillon Baez MD Urea nitrogen [Mass/Vol] 20 mg/dL Normal 7-25 [facility] Comment on above: Order Comment: FASTI NG:YES FASTING: YES Performed By: #### 1 0165, 496 #### [facility] [place] [address] Major Account Manager: Dillon Baez MD HEMOGLOBIN A1con 08-18-2021 HEMOGLOBIN A1c 6.6 % of total Hgb High <5.7 [facility] Comment on above: Result Comment: For someone without known diabetes, a hemoglobin A1c value of 6.5% or greater indicates that they may have diabetes and this should be confirmed with a follow-up test. For someone with known diabetes, a value <7% indicates that their diabetes is well controlled and a value greater than or equal to 7% indicates suboptimal control. A1c targets should be individualized based on duration of diabetes, age, comorbid conditions, and other considerations. Currently, no consensus exists regarding use of hemoglobin A1c for diagnosis of diabetes for children. Performed By: #### 1 0165, 496 #### [facility] [place] [address] Major Account Manager: Dillon Baez MD ALBUMIN, RANDOM URINE W/CREA TININEon 12-25-2020 ALBUMIN, URINE 1.4 mg/dL Normal See Note: [facility] Comment on above: Result Comment: Refe rence Range: Reference Range Not established Performed By: #### 6 517, 62654, 905, 718, 7600, 76375, 6399, 496 #### [facility] [place] [address] Major Account Manager: Dillon Baez MD ALBUMIN/CREATININE RATIO, RANDOM URINE 11 mcg/mg creat Normal <30 [facility] Comment on above: Result Comment: The ADA defines abnormalities in albumin excretion as follows: Category Result (mcg/mg creatinine) Normal <30 Microalbuminuria 30-299 Clinical albuminuria > OR = 300 The ADA recommends that at least two of three specimens collected within a 3-6 month period be abnormal before considering a patient to be within a diagnostic category. Performed By: #### 6 517, 84007, 905, 718, 7600, 83989, 6399, 496 #### [facility] [place] [address] Major Account Manager: Dillon Baez MD Creatinine (U) [Mass/Vol] 129 mg/dL Normal 20-275 [facility] Comment on above: Performed By: #### 6 517, 30187, 905, 718, 7600, 23261, 6399, 496 #### [facility] [place] [address] Major Account Manager: Dillon Baez MD CBC (INCLUDES DIFF/PLT)on Basophils (Bld) [#/Vol] 0.061 10*3/uL Normal 0-200 [facility] Comment on above: Performed By: #### 6 517, 01514, 905, 718, 7600, 12224, 6399, 496 #### [facility] of [place] [address] Major Account Manager: Dillon Baez MD Basophils/100 WBC (Bld) 0.8 % Normal [facility] Comment on above: Performed By: #### 6 517, 84563, 905, 718, 7600, 62824, 6399, 496 #### [facility] of [address], [address] [place] [address] Major Account Manager: Dillon Baez MD Eosinophils (Bld) [#/Vol] 1.307 10*3/uL High 15-500 [facility] Comment on above: Performed By: #### 6 517, 71679, 905, 718, 7600, 96596, 6399, 496 #### [facility] [place] [address] Major Account Manager: Dillon Baez MD Eosinophils/100 WBC (Bld) 17.2 % Normal [facility] Comment on above: Performed By: #### 6 517, 56415, 905, 718, 7600, 02024, 6399, 496 #### [facility] [place] [address] Major Account Manager: Dillon Baez MD Erythrocyte distribution width (RBC) [Ratio] 12.2 % Normal 11.0-15.0 [facility] Comment on above: Performed By: #### 6 517, 41582, 905, 718, 7600, 63251, 6399, 496 #### [facility] [place] [address] Major Account Manager: Dillon Baez MD Hematocrit (Bld) [Volume fraction] 37.7 % Normal 35.0-45.0 [facility] Comment on above: Performed By: #### 6 517, 51154, 905, 718, 7600, 48406, 6399, 496 #### [facility] of [address] [place] [address] Major Account Manager: Dillon Baez MD Hemoglobin (Bld) [Mass/Vol] 12.6 g/dL Normal 11.7-15.5 [facility] Comment on above: Performed By: #### 6 517, 99647, 905, 718, 7600, 27054, 6399, 496 #### [facility] [place] [address] Major Account Manager: Dillon Baez MD Lymphocytes (Bld) [#/Vol] 1.946 10*3/uL Normal 850-3900 [facility] Comment on above: Performed By: #### 6 517, 02606, 905, 718, 7600, 93059, 6399, 496 #### [facility] [place] [address] Major Account Manager: Dillon Baez MD Lymphocytes/100 WBC (Bld) 25.6 % Normal [facility] Comment on above: Performed By: #### 6 517, 81622, 905, 718, 7600, 47491, 6399, 496 #### [facility] [place] [address] Major Account Manager: Dillon Baez MD MCH (RBC) [Entitic mass] 30.5 pg Normal 27.0-33.0 [facility] Comment on above: Performed By: #### 6 517, 80027, 905, 718, 7600, 82518, 6399, 496 #### [facility] [place] [address] Major Account Manager: Dillon Baez MD MCHC (RBC) [Mass/Vol] 33.4 g/dL Normal 32.0-36.0 [facility] Comment on above: Performed By: #### 6 517, 23916, 905, 718, 7600, 09981, 6399, 496 #### [facility] [place] [address] Major Account Manager: Dillon Baez MD MCV (RBC) [Entitic vol] 91.3 fL Normal 80.0-100.0 [facility] Comment on above: Performed By: #### 6 517, 72175, 905, 718, 7600, 92714, 6399, 496 #### [facility] [place] [address] Major Account Manager: Dillon Baez MD Monocytes (Bld) [#/Vol] 0.737 10*3/uL Normal 200-950 [facility] Comment on above: Performed By: #### 6 517, 14498, 905, 718, 7600, 69055, 6399, 496 #### [facility] [place] [address] Major Account Manager: Dillon Baez MD Monocytes/100 WBC (Bld) 9.7 % Normal [facility] Comment on above: Performed By: #### 6 517, 17633, 905, 718, 7600, 85607, 6399, 496 #### [facility] [place] [address] Major Account Manager: Dillon Baez MD Neutrophils (Bld) [#/Vol] 3.549 10*3/uL Normal 9510-8387 [facility] Comment on above: Performed By: #### 6 517, 34704, 905, 718, 7600, 23914, 6399, 496 #### [facility] [place] [address] Major Account Manager: Dillon Baez MD Neutrophils/100 WBC (Bld) 46.7 % Normal [facility] Comment on above: Performed By: #### 6 517, 98233, 905, 718, 7600, 59752, 6399, 496 #### [facility] [place] [address] Major Account Manager: Dillon Baez MD Platelet mean volume (Bld) [Entitic vol] 9.7 fL Normal 7.5-12.5 [facility] Comment on above: Performed By: #### 6 517, 80499, 905, 718, 7600, 96335, 6399, 496 #### [facility] [place] [address] Major Account Manager: Dillon Baez MD Platelets (Bld) [#/Vol] 263 10*3/uL Normal 140-400 [facility] Comment on above: Performed By: #### 6 517, 36073, 905, 718, 7600, 40928, 6399, 496 #### [facility] [place] [address] Major Account Manager: Dillon Baez MD RBC (Bld) [#/Vol] 4.13 10*6/uL Normal 3.80-5.10 [facility] Comment on above: Performed By: #### 6 517, 19071, 905, 718, 7600, 59819, 6399, 496 #### [facility] [place] [address] Major Account Manager: Dillon Baez MD WBC (Bld) [#/Vol] 7.6 10*3/uL Normal 3.8-10.8 [facility] Comment on above: Performed By: #### 6 517, 38322, 905, 718, 7600, 32399, 6399, 496 #### [facility] [place] [address] Major Account Manager: Dillon Baez MD COMPREHENSIVE METABOLIC PANE [facility] 12-25-2020 Albumin [Mass/Vol] 4.2 g/dL Normal 3.6-5.1 [facility] Comment on above: Performed By: #### 6 517, 55892, 905, 718, 7600, 36292, 6399, 496 #### [facility] [place] [address] Major Account Manager: Dillon Baez MD Albumin/Globulin [Mass ratio] 1.7 {ratio} Normal 1.0-2.5 [facility] Comment on above: Performed By: #### 6 517, 02257, 905, 718, 7600, 51871, 6399, 496 #### [facility] of [address], [address] [place] [address] Major Account Manager: Dillon Baez MD ALP [Catalytic activity/Vol] 70 U/L Normal 37-153 [facility] Comment on above: Performed By: #### 6 517, 47896, 905, 718, 7600, 95578, 6399, 496 #### [facility] of [address], [address] [place] [address] Major Account Manager: Dillon Baez MD ALT [Catalytic activity/Vol] 17 U/L Normal 6-29 [facility] Comment on above: Performed By: #### 6 517, 68116, 905, 718, 7600, 61818, 6399, 496 #### [facility] [place] [address] Major Account Manager: Dillon Baez MD AST [Catalytic activity/Vol] 18 U/L Normal 10-35 [facility] Comment on above: Performed By: #### 6 517, 82265, 905, 718, 7600, 60680, 6399, 496 #### [facility] [place] [address] Major Account Manager: Dillon Baez MD Bilirubin [Mass/Vol] 0.4 mg/dL Normal 0.2-1.2 [facility] Comment on above: Performed By: #### 6 517, 57395, 905, 718, 7600, 72616, 6399, 496 #### [facility] [place] [address] Major Account Manager: Dillon aBez MD Calcium [Mass/Vol] 9.2 mg/dL Normal 8.6-10.4 [facility] Comment on above: Performed By: #### 6 517, 81018, 905, 718, 7600, 99243, 6399, 496 #### [facility] [place] [address] Major Account Manager: Dillon Baez MD Chloride [Moles/Vol] 102 mmol/L Normal 98-110 [facility] Comment on above: Performed By: #### 6 517, 31783, 905, 718, 7600, 54320, 6399, 496 #### [facility] [address], [address] [place] [address] Major Account Manager: Dillon Baez MD CO2 [Moles/Vol] 27 mmol/L Normal 20-32 [facility] Comment on above: Performed By: #### 6 517, 00588, 905, 718, 7600, 80214, 6399, 496 #### [facility] [place] [address] Major Account Manager: Dillon Baez MD Creatinine [Mass/Vol] 1.08 mg/dL High 0.50-1.05 [facility] Comment on above: Result Comment: For patients >49 years of age, the reference limit for Creatinine is approximately 13% higher for people identified as -Dutch. Performed By: #### 6 517, 34247, 905, 718, 7600, 45589, 6399, 496 #### [facility] [place] [address] Major Account Manager: Dillon Baez MD eGFR NON-AFR. ARGENTINE 57 mL/min/1.73m2 Low > OR = 60 [facility] Comment on above: Performed By: #### 6 517, 09339, 905, 718, 7600, 93815, 6399, 496 #### [facility] [address], [address] [place] [address] Major Account Manager: Dillon Baez MD GFR/1.73 sq M.predicted among blacks MDRD (S/P/Bld) [Vol rate/Area] 66 mL/min/{1.73_m2} Normal > OR = 60 [facility] Comment on above: Performed By: #### 6 517, 16132, 905, 718, 7600, 76498, 6399, 496 #### [facility] [address] [place] [address] Major Account Manager: Dillon Baez MD Globulin (S) [Mass/Vol] 2.5 g/dL Normal 1.9-3.7 [facility] Comment on above: Performed By: #### 6 517, 54515, 905, 718, 7600, 59194, 6399, 496 #### [facility] [place] [address] Major Account Manager: Dillon Baez MD Glucose [Mass/Vol] 152 mg/dL High 65-139 [facility] Comment on above: Result Comment: Non-fasting reference interval For someone without known diabetes, a glucose value >125 mg/dL indicates that they may have diabetes and this should be confirmed with a follow-up test. Performed By: #### 6 517, 04269, 905, 718, 7600, 18286, 6399, 496 #### [facility] [place] [address] Major Account Manager: Dillon Baez MD Potassium [Moles/Vol] 4.1 mmol/L Normal 3.5-5.3 [facility] Comment on above: Performed By: #### 6 517, 50066, 905, 718, 7600, 19332, 6399, 496 #### [facility] [place] [address] Major Account Manager: Dillon Baez MD Protein [Mass/Vol] 6.7 g/dL Normal 6.1-8.1 [facility] Comment on above: Performed By: #### 6 517, 34261, 905, 718, 7600, 79201, 6399, 496 #### [facility] [place] [address] Major Account Manager: Dillon Baez MD Sodium [Moles/Vol] 138 mmol/L Normal 135-146 [facility] Comment on above: Performed By: #### 6 517, 99120, 905, 718, 7600, 09153, 6399, 496 #### [facility] [address] [place] [address] Major Account Manager: Dillon Baez MD Urea nitrogen [Mass/Vol] 20 mg/dL Normal 7-25 [facility] Comment on above: Performed By: #### 6 517, 70819, 905, 718, 7600, 37368, 6399, 496 #### [facility] [address], [address] [place] [address] Major Account Manager: Dillon Baez MD Urea nitrogen/Creatinin e [Mass ratio] 19 mg/mg Normal 6-22 [facility] Comment on above: Performed By: #### 6 517, 22311, 905, 718, 7600, 57855, 6399, 496 #### [facility] [address], [address] [place] [address] Major Account Manager: Dillon Baez MD HEMOGLOBIN A1con 12-25-2020 HEMOGLOBIN A1c 6.2 % of total Hgb High <5.7 [facility] Comment on above: Result Comment: For someone without known diabetes, a hemoglobin A1c value between 5.7% and 6.4% is consistent with prediabetes and should be confirmed with a follow-up test. For someone with known diabetes, a value <7% indicates that their diabetes is well controlled. A1c targets should be individualized based on duration of diabetes, age, comorbid conditions, and other considerations. This assay result is consistent with an increased risk of diabetes. Currently, no consensus exists regarding use of hemoglobin A1c for diagnosis of diabetes for children. Performed By: #### 1 0165, 496 #### [facility] [address], [address] [place] [address] Major Account Manager: Dillon Baez MD LIPID PANEL, STANDARDon Cholesterol [Mass/Vol] 188 mg/dL Normal <200 [facility] Comment on above: Order Comment: FASTI NG:NO FASTING: NO Performed By: #### 6 517, 82769, 905, 718, 7600, 23906, 6399, 496 #### [facility] [address], [address] [place] [address] Major Account Manager: Dillon Baez MD Cholesterol in HDL [Mass/Vol] 91 mg/dL Normal > OR = 50 [facility] Comment on above: Order Comment: FASTI NG:NO FASTING: NO Performed By: #### 6 517, 02519, 905, 718, 7600, 33667, 6399, 496 #### [facility] [address], [address] [place] [address] Major Account Manager: Dillon Baez MD Cholesterol in LDL [Mass/Vol] 79 mg/dL Normal [facility] Comment on above: Order Comment: FASTI NG:NO FASTING: NO Result Comment: Refe rence range: <100 Desirable range <100 mg/dL for primary prevention; <70 mg/dL for patients with CHD or diabetic patients with > or = 2 CHD risk factors. LDL-C is now calculated using the Makeda calculation, which is a validated novel method providing better accuracy than the Friedewald equation in the estimation of LDL-C. Mart SS et al. ENA. 2013;310(19): 2696-2023 (http://education.Voxeo/faq/UQD222) Performed By: #### 6 517, 70663, 905, 718, 7600, 54066, 6399, 496 #### [facility] [address], [address] [place] [address] Major Account Manager: Dillon Baez MD Cholesterol.total/ Cholesterol in HDL [Mass ratio] 2.1 {ratio} Normal <5.0 [facility] Comment on above: Order Comment: FASTI NG:NO FASTING: NO Performed By: #### 6 517, 48109, 905, 718, 7600, 29912, 6399, 496 #### [facility] [address], [address] [place] [address] Major Account Manager: Dillon Baez MD NON HDL CHOLESTEROL 97 mg/dL (calc) Normal <130 [facility] Comment on above: Order Comment: FASTI NG:NO FASTING: NO Result Comment: For patients with diabetes plus 1 major ASCVD risk factor, treating to a non-HDL-C goal of <100 mg/dL (LDL-C of <70 mg/dL) is considered a therapeutic option. Performed By: #### 6 517, 47518, 905, 718, 7600, 84429, 6399, 496 #### [facility] [address], [address] [place] [address] Major Account Manager: Dillon Baez MD Triglyceride [Mass/Vol] 93 mg/dL Normal <150 [facility] Comment on above: Order Comment: FASTI NG:NO FASTING: NO Performed By: #### 6 517, 48253, 905, 718, 7600, 45279, 6399, 496 #### [facility] [address], [address] [place] [address] Major Account Manager: Dillon Baez MD PHOSPHATE ( PHOSPHORUS)on 12-25-2020 Phosphate [Mass/Vol] 4.3 mg/dL Normal 2.5-4.5 [facility] Comment on above: Performed By: #### 6 517, 77562, 905, 718, 7600, 49737, 6399, 496 #### [facility] [address], [address] [place] [address] Major Account Manager: Dillon Baez MD PTH, INTACT WITHOUT CALCIUMo n 12-25-2020 PARATHYROID HORMONE, INTACT 29 pg/mL Normal 14-64 [facility] Comment on above: Result Comment: Interpretive Guide Intact PTH Calcium ------- Normal Parathyroid Normal Normal Hypoparathyroidism Low or Low Normal Low Hyperparathyroidism Primary Normal or High High Secondary High Normal or Low Tertiary High High Non-Parathyroid Hypercalcemia Low or Low Normal High Performed By: #### 6 517, 11129, 905, 718, 7600, 33276, 6399, 496 #### [facility] [address], [address] [place] [address] Major Account Manager: Dillon Baez MD URIC ACIDon 12-25-2020 Urate [Mass/Vol] 2.9 mg/dL Normal 2.5-7.0 [facility] Comment on above: Result Comment: Ther apeutic target for gout patients: <6.0 mg/dL Performed By: #### 6 517, 38822, 905, 718, 7600, 16323, 6399, 496 #### [facility] [place] [address] Major Account Manager: Dillon Baez MD VITAMIN D,25-OH,TOTAL,IAon 0 12-25-2020 VITAMIN D,25-OH,TOTAL,IA 31 ng/mL Normal 30-100 [facility] Comment on above: Result Comment: Mitali min D Status 25-OH Vitamin D: Deficiency: <20 ng/mL Insufficiency: 20 - 29 ng/mL Optimal: > or = 30 ng/mL For 25-OH Vitamin D testing on patients on D2-supplementation and patients for whom quantitation of D2 and D3 fractions is required, the QuestAssureD(TM) 25-OH VIT D, (D2,D3), LC/MS/MS is recommended: order code 49027 (patients >2yrs). See Note 1 Note 1 For additional information, please refer to http://education.Startupeando.Logisticare/faq/ICS591 (This link is being provided for informational/ educational purposes only.) Performed By: #### 6 517, 80943, 905, 718, 7600, 02971, 6399, 496 #### [facility] [address], [address] [place] [address] Major Account Manager: Dillon Baez MD Vital Signs Date Time Vital Sign Value Performing Clinician Facility 01-17-2025 14: Body height 165.1 cm PHYSICIAN NO [facility] 01-17-2025 14:040 Body mass index (BMI) [Ratio] 17.4 kg/m2 PHYSICIAN NO [facility] 01-17-2025 14:14 Body temperature 97.8 [degF] PHYSICIAN NO [facility] 01-17-2025 14:14040 Body weight 47.62 kg PHYSICIAN NO [facility] 01-17-2025 14:14040 Diastolic blood pressure 68 mm[Hg] PHYSICIAN NO [facility] 01-17-2025 14:14-0400 Heart rate 82 /min PHYSICIAN NO [facility] 01-17-2025 14:14-0400 Respiratory rate 18 /min PHYSICIAN NO [facility] 01-17-2025 14:14-0400 SaO2% (BldA) [Mass fraction] 99 % PHYSICIAN NO [facility] 01-17-2025 14:14-0400 Systolic blood pressure 98 mm[Hg] PHYSICIAN NO [facility] 06-26-2024 16:16-0500 Body mass index (BMI) [Ratio] 17.64 kg/m2 Enrrique Jazmynhas DO Work Phone: [facility] 06-26-2024 16:16-0500 Body temperature 97.9 [degF] Enrrique Yuhas DO Work Phone: [facility] 06-26-2024 16:16-0500 Body weight 48.08 kg Enrrique Yuhas DO Work Phone: [facility] 06-26-2024 16:16-0500 Diastolic blood pressure 70 mm[Hg] Enrrique Eldridgehas DO Work Phone: [facility] 06-26-2024 16:16-0500 Heart rate 75 /min Enrrique Yuhas DO Work Phone: [facility] 06-26-2024 16:16-0500 Respiratory rate 18 /min Enrrique Yuhas DO Work Phone: [facility] 06-26-2024 16:16-0500 SaO2% (BldA) [Mass fraction] 96 % Enrrique Yuhas DO Work Phone: [facility] 06-26-2024 16:16-0500 Systolic blood pressure 126 mm[Hg] Enrrique Yuhas DO Work Phone: [facility] 05-10-2024 08:57-0500 Diastolic blood pressure 60 mm[Hg] Alok Light MD Work Phone: [facility] 05-10-2024 08:57-0500 Systolic blood pressure 110 mm[Hg] Alok Light MD Work Phone: [facility] 02-17-2024 10:31-0400 Body height 165.1 cm [facility] 02-17-2024 10:31-0400 Body mass index (BMI) [Ratio] 17.6 kg/m2 [facility] 02-17-2024 10:31-0400 Body temperature 97.6 [degF] [facility] 02-17-2024 10:31-0400 Body weight 48.13 kg [facility] 02-17-2024 10:31-0400 Diastolic blood pressure 63 mm[Hg] [facility] 02-17-2024 10:31-0400 Heart rate 94 /min [facility] 02-17-2024 10:31-0400 Respiratory rate 16 /min [facility] 02-17-2024 10:31-0400 SaO2% (BldA) [Mass fraction] 98 % [facility] 02-17-2024 10:31-0400 Systolic blood pressure 106 mm[Hg] [facility] 07-23-2022 13:15-0500 Body height 165.1 cm Adela Stein Other [employer] [facility] [employer] Other 07-23-2022 13:15-0500 Body mass index (BMI) [Ratio] 18.94 kg/m2 Adela Stein Other [employer] Other 07-23-2022 13:15-0500 Body temperature 98.8 [degF] Adela Stein Other [employer] Other 07-23-2022 13:15-0500 Body weight 51.62 kg Adela Stein Other [employer] Other 07-23-2022 13:15-0500 Diastolic blood pressure 72 mm[Hg] Adela Stein Other [employer] Other 07-23-2022 13:15-0500 Respiratory rate 18 /min Adela Stein Other [employer] Other 07-23-2022 13:15-0500 SaO2% (BldA) [Mass fraction] 100 % Adela Stein Other [employer] Other 07-23-2022 13:15-0500 Systolic blood pressure 145 mm[Hg] Adela Stein Other [employer] Other Encounters Encounter Date Encounter Type Care Provider Facility Start: 01-17-2025 End: 01-17-2025 ambulatory PHYSICIAN [facility] Work Phone: Start: 01-17-2025 End: 01-17-2025 Patient encounter procedure Linh Valentin [facility] Work Phone: Start: 01-08-2025 End: 01-08-2025 Office outpatient visit 15 minutes Regi Pandey MD [facility] Comment on above: Seborrheic keratosis (Primary Dx); Actinic keratosis; Sebaceous hyperplasia of face; Neoplasm of unspecified behavior of bone, soft tissue, and skin; Lentigines; History of basal cell carcinoma Start: 01-08-2025 End: 01-08-2025 ambulatory REGI PANDEY Not Available Start: 01-08-2025 End: 01-08-2025 Ollie Pandey MD Work Phone: [facility] [place] [facility] Start: 01-08-2025 End: 01-08-2025 Ollie Pandey MD Work Phone: [facility] [place] [facility] Start: 01-02-2025 End: 01-02-2025 Rivka Zee DO Work Phone: [facility] Comment on above: Type 1 diabetes jorge [place] with microalbuminuria ([facility]) Start: 07-20-2024 End: 07-20-2024 Refill Enrrique Zee DO Work Phone: [facility] Comment on above: Type 1 diabetes jorge [place] with microalbuminuria ([facility]) Start: 06-26-2024 End: 06-26-2024 ambulatory [facility] Start: 06-26-2024 End: 06-26-2024 Office outpatient visit 25 minutes Enrrique Zee DO Work Phone: [facility] Comment on above: Type 1 diabetes jorge [place] with microalbuminuria ([facility]) (Primary Dx); Essential hypertension; Bipolar II disorder ([facility]) Start: 06-26-2024 End: 06-26-2024 ambulatory [facility] Start: 06-11-2024 End: 06-11-2024 Postop follow up visit related to original px Tequila Northeim PA Work Phone: [facility] Comment on above: Encounter for remova l of sutures (Primary Dx) Start: 06-11-2024 End: 06-11-2024 ambulatory TEQUILA NORTHEIM Not Available Start: 06-11-2024 End: 06-11-2024 Bamboo flowsheet Tequila Northeim PA Work Phone: [facility] Start: 06-11-2024 End: 06-11-2024 Bamboo flowsheet Tequila Northeim PA Work Phone: [facility] Start: 05-29-2024 End: 05-29-2024 Patient encounter procedure Regi Pandey MD Work Phone: [facility] Comment on above: Basal cell carcinoma (BCC) of skin of other part of torso (Primary Dx) Start: 05-29-2024 End: 05-29-2024 ambulatory REGI PANDEY Not Available Start: 05-29-2024 End: 05-29-2024 Bamboo flowsheet Regi Pandey MD Work Phone: [facility] Start: 05-29-2024 End: 05-29-2024 Bamboo flowsbrandon Pandey MD Work Phone: [facility] Start: 05-10-2024 End: 05-10-2024 Patient encounter procedure Alok Light MD Work Phone: [facility] Comment on above: Basal cell carcinoma (BCC) of right spiritism region Start: 05-10-2024 End: 05-10-2024 ambulatory ALOK LIGHT Not Available Start: 03-04-2024 End: 03-04-2024 Office outpatient visit 15 minutes Regi Pandey MD Work Phone: [facility] Comment on above: Seborrheic keratosis (Primary Dx); Neoplasm of unspecified behavior of bone, soft tissue, and skin; Actinic keratosis; Lentigines Start: 03-04-2024 End: 03-04-2024 ambulatory REGI PANDEY Not Available Start: 03-04-2024 End: 03-04-2024 Bamboo flowsbrandon Pandey MD Work Phone: [facility] Start: 03-04-2024 End: 03-04-2024 Bamboo jen Pandey MD Work Phone: [facility] Start: 02-17-2024 End: 02-17-2024 Departed Referred HANNAH Winter Work Phone: [facility] [place] Work Phone: Start: 02-17-2024 End: 02-17-2024 ambulatory Elisabet Winter [facility] Work Phone: Start: 02-17-2024 End: 02-17-2024 Patient encounter procedure [facility] Work Phone: Start: 11-20-2023 End: 11-20-2023 ambulatory ENRRIQUE Vinny ELDRIDGETee [facility] Start: 11-20-2023 End: 11-20-2023 ambulatory [facility] Start: 08-23-2022 End: 08-24-[address] MADISON HURT Facility:[facility] Start: 07-29-[address] ENRRIQUE ZEE Facility: [facility] Start: 07-23-2022 End: 07-23-2022 ambulatory Adela Stein Other [employer] Other Start: 07-23-2022 Office outpatient vi sit 15 minutes Adela Stein [facility] Procedures Date Procedure Procedure Detail Performing Clinician Start: 01-08-2025 SKIN / NAIL BIOPSY Graeme Pandey MD Work Phone: Start: 01-08-2025 CRYOTHERAPY SKIN LESION Regi Pandye MD Work Phone: Start: 06-26-2024 Adult depression scr eening assessment Enrrique Zee DO Work Phone: Start: 05-29-2024 SKIN EXCISION Regi graves MD Work Phone: Start: 05-29-2024 SKIN REPAIR Regi bañuelos MD Work Phone: Start: 05-09-2024 MOHS SURGERY Alok nuno MD Work Phone: Start: 03-04-2024 CRYOTHERAPY SKIN LESION Regi Pandey MD Work Phone: Start: 03-04-2024 End: 03-04-2024 SKIN / NAIL BIOPSY Regi Pandey MD Work Phone: Start: 12-13-2023 Mammography Regi albarran MD Work Phone: Start: 11-20-2023 Microalbumin [Mass/v olume] in Urine by Test strip Enrrique Zee DO Work Phone: Start: 11-14-2023 Diabetic retinal eye exam Enrrique Yuhas DO Work Phone: Start: 08-09-2022 Microscopic observat ion [Identifier] in Cervix by Cyto stain Enrrique Zee DO Work Phone: Plan of Treatment Date Care Activity Detail Author Start: 02-22-2033 DTaP,Tdap and Td Vaccines (2 - Td or Tdap) DTaP,Tdap and Td Vaccines (2 - Td or Tdap) [facility] Start: 08-10-2027 Screening for malignant neoplasm of cervix [facility] Start: 08-09-2025 Screening for malignant neoplasm of cervix Pap Smear [facility] Start: 07-16-2025 End: 07-16-2025 Patient encounter procedure 07/16/2025 3:00 PM EST [facility] [address] [place] [phone] Regi Pandey MD [address] [place] [address] [facility] Start: 06-26-2025 Adult BMI Screening Adult BMI Screening [facility] Start: 06-26-2025 Depression Screening Depression Screening [facility] Start: 03-20-2025 End: 03-20-2025 Patient encounter procedure 03/20/2025 3:35 PM EDT [facility] [address] [place] [address] Regi Pandey MD [address] [place] [address] [facility] Start: 02-27-2025 End: 02-27-2025 Patient encounter procedure 02/27/2025 3:35 PM EDT Office Visit [facility] [address] [place] [address] Regi Pandey MD [address] [place] [address] [facility] Start: 01-31-2025 Statin Use: Diabetic Statin Use: Diabetic [facility] Start: 01-20-2025 Influenza vaccination [facility] Start: 01-08-2025 End: 01-08-2025 Patient encounter procedure 01/08/2025 3:15 PM EDT Office Visit [facility] [address] [place] [phone] Regi Pandey MD [address] [place] [address] Arrived [facility] Comment on above: Arrived Start: 12-12-2024 Screening for malignant neoplasm of breast Mammogram [facility] Start: 11-19-2024 Tobacco Screening Tobacco Screening [facility] Start: 11-19-2024 Urine screening for protein Urine Microalbumin [facility] Start: 11-13-2024 Glaucoma screening Diabetic Ophthalmology Exam [facility] Start: 06-11-2024 End: 06-11-2024 Patient encounter procedure [facility] Comment on above: Arrived Start: 05-29-2024 End: 05-29-2024 Patient encounter procedure [facility] Comment on above: Arrived Start: 03-04-2024 End: 03-04-2024 Patient encounter procedure 03/04/2024 3:05 PM EDT Office Visit [facility] [address] [place] [phone] Regi Pandey MD [address] [place] [address] Arrived [facility] Comment on above: Arrived Start: 02-17-2024 Bacteria identified in Urine by Culture [facility] Start: 01-21-2024 Influenza vaccination Influenza Vaccine (#1) [facility] Start: 01-18-2024 Screening for malignant neoplasm of colon [facility] Start: 08-05-2023 Diabetic foot examination Diabetic Foot Exam [facility] Start: 08-02-1984 Screening for malignant neoplasm of cervix Pap Smear [facility] Start: 08-02-1981 Adult BMI Follow Up Plan Adult BMI Follow Up Plan [facility] Start: 1965 Screening for malignant neoplasm of colon [facility] End: 06-26-2025 Comprehensive metabolic 2000 panel - Serum or Plasma Comprehensive metabolic panel Lab Routine Type 1 diabetes mellitus with microalbuminuria ([facility]) 1 Occurrences starting 06/26/2024 until 06/26/2025 [facility] Work [facility]: Comment on above: 1 Occurrences starting 06/26/2024 until 06/26/2025 Dermatopathology exam Dermatopat hology exam Pathology and Cytology Timed Neoplasm of unspecified behavior of bone, soft tissue, and skin Release Upon Ordering for 1 Occurrences starting 03/04/2024 [facility] [employer] Work Phone: Comment on above: Release Upon Ordering for 1 Occurrences starting 03/04/2024 Dermatopathology exam Dermatopat hology exam Pathology and Cytology Timed Basal cell carcinoma (BCC) of skin of other part of torso Release Upon Ordering for 1 Occurrences starting 05/29/2024 [facility] [employer] Work Phone: Comment on above: Release Upon Ordering for 1 Occurrences starting 05/29/2024 Dermatopathology exam Dermatopat hology exam Pathology and Cytology Timed Neoplasm of unspecified behavior of bone, soft tissue, and skin Release Upon Ordering for 1 Occurrences starting 01/08/2025 [facility] [employer] Work Phone: Comment on above: Release Upon Ordering for 1 Occurrences starting 01/08/2025 End: 06-26-2025 Hemoglobin A1c/Hemoglobin.total in Blood Hemoglobin A1c Lab Routine Type 1 diabetes mellitus with microalbuminuria ([facility]) 1 Occurrences starting 06/26/2024 until 06/26/2025 [facility] [employer] Comment on above: 1 Occurrences starting 06/26/2024 until 06/26/2025 [facility] Immunizations Immunization Date Immunization Notes Care Provider Inez kevin 03-14-2024 influenza virus vacc ine, unspecified formulation Enrrique Zee DO Work Phone: [facility] 03-07-2023 influenza virus vacc ine, unspecified formulation Regi Pandey MD Work Phone: [facility] [employer] 02-22-2023 tetanus toxoid, redu louann diphtheria toxoid, and acellular pertussis vaccine, adsorbed Enrrique Zee DO Work Phone: [facility] 02-15-2022 influenza virus vacc ine, unspecified formulation Enrrique Eldridgehas DO Work Phone: [facility] 02-15-2022 influenza, injectabl e, quadrivalent, preservative free Enrrique Eldridgehas DO Work Phone: [facility] 03-03-2021 influenza, injectabl e, quadrivalent, preservative free Enrrique Trimbles DO Work Phone: [facility] 02-09-2021 zoster vaccine recombinant Enrrique Trimbles DO Work Phone: [facility] 10-14-2020 zoster vaccine recombinant Enrriuqe Trimbles DO Work Phone: [facility] 03-03-2020 influenza, injectabl e, quadrivalent, preservative free Enrrique Trimbles DO Work Phone: [facility] 03-05-2019 influenza, injectabl e, quadrivalent, preservative free Enrrique Trimbles DO Work Phone: [facility] 03-05-2018 influenza virus vacc ine, unspecified formulation Enrrique Trimbles DO Work Phone: [facility] 03-14-2017 influenza, injectabl e, quadrivalent, preservative free Enrrique Trimbles DO Work Phone: [facility] 03-08-2017 influenza virus vacc ine, unspecified formulation Enrrique Trimbles DO Work Phone: [facility] 03-07-2017 influenza, injectabl e, quadrivalent, preservative free Enrrique Eldridgehas DO Work Phone: [facility] 05-04-2016 pneumococcal polysaccharide vaccine, 23 valent Enrrique Zee DO Work Phone: [facility] 03-05-2016 influenza virus vacc ine, unspecified formulation Enrrique Trimbles DO Work Phone: [facility] 03-02-2016 influenza, injectabl e, quadrivalent, preservative free Enrrique Yuhas DO Work Phone: [facility] 02-22-2016 pneumococcal polysaccharide vaccine, 23 valent Enrrique Yuhas DO Work Phone: [facility] 02-20-2016 seasonal influenza, intradermal, preservative free Enrrique Yuhas DO Work Phone: [facility] 05-22-2015 pneumococcal polysaccharide vaccine, 23 valent Enrrique Yuhas DO Work Phone: [facility] 04-08-2015 pneumococcal conjuga te vaccine, 13 valent Enrrique Yuhas DO Work Phone: [facility] 03-04-2015 influenza, injectabl e, quadrivalent, preservative free Enrrique Yuhas DO Work Phone: [facility] 02-19-2015 seasonal influenza, intradermal, preservative free Enrrique Yuhas DO Work Phone: [facility] Payers Date Payer Category Payer [facility] [id number] 2020 [facility] Managed Care - Other [facility] [id number] 1963 Unknown [id number] 9.2.593 1963 Unknown [id number] [id number] 9.2.593 1963 Unknown [id number] [id number] 9.2.1286 1963 Unknown [id number] [id number] 9.2.1286 1963 Unknown [id number] [id number] 9.2.1286 1963 Unknown [id number] [id number] 9.2.1286 1963 Unknown [id number] [id number] 9.2.1259 1963 Unknown [id number] [id number] 9.2.1259 1963 Unknown [id number] [id number] 9.2.1259 1963 Unknown [id number] [id number] 9.2.1259 1963 Unknown [id number] [id number] 9.2.1259 1959 [employer] Blue [employer] [id number] 1959 Self-pay Unknown [place] [employer]/BS [id number] Unknown [id number] 9.2.531 Social History Date Type Detail Facility Unknown if ever smoked [employer] Other Start: 03-04-2024 End: 01-08-2025 Sex Assigned At [facility] [facility] Start: 02-17-2024 End: 03-04-2024 Tobacco smoking status PRIS Never smoked tobacco (finding) [facility] Start: 1965 Sex Assigned At Female F [facility] Tobacco smoking status [facility] Tobacco smoking consumption unknown [facility] Start: 1965 Sex assigned at Not on file [facility] Start: 08-09-2022 End: 03-04-2024 Tobacco use and exposure Smokeless tobacco non-user [facility] Start: 03-04-2024 End: 01-08-2025 History of Social function [facility] Start: 11-20-2023 Alcoholic beverage intake Current non-drinker of alcohol (finding) [facility] How hard is it for you to pay for the very basics like food, housing, medical care, and heating Not hard at all [facility] Start: 12-23-2014 Sex Female (finding) [facility] Clinical Notes 07-23-2022 to 01-08-2025 Regi Pandey MD - 01/08/2025 3:15 PM Joey Zee DO - 06/26/2024 3:45 PM MOISES Olmedo - 06/11/2024 2:50 PM Daniel Pandey MD - 05/29/2024 3:00 PM EST Note Date & Type Note Facility 01-08-2025 History of Present illness Narrative Images from the original note were not [...] lesions that fail to resolve should be re-evaluated. Cryotherapy performed today; see procedure note Diagnosis: Actinic keratosis Indication: Precancerous Location: see skin exam Consent: Verbal consent was obtained and risks were discussed, including, but not limited to risks of scarring, darker or loan review officer pigmentary changes, recurrence, incomplete removal and infection. [...] supply but only use for 14 days. 3. SEBACEOUS HYPERPLASIA OF FACE Head - Anterior (Face) Small yellow papules with a central dell. Reassure, benign. Discussed these can be removed for a cosmetic fee with the hyfrecator if desired. 4. NEOPLASM OF UNSPECIFIED BEHAVIOR OF BONE, SOFT TISSUE, AND SKIN Left Upper Back [place] papule Lesion biopsy Type of biopsy: tangential [...] benign pigmented lesions that occur on sun-exposed and sun-damaged skin. No treatment is necessary. Recommended regular [...] Visit: 6 months documented in this encounter [facility] 06-26-2024 History of Present illness Narrative IM PROGRESS NOTE Patient - Josh Ferrari Age - 58 [facility] 1965 [id number] ASSESS[facility] & PLAN 1. Type 1 diabetes mellitus with microalbuminuria ([facility]) (Primary) -goals of treatment reviewed with the patient. -check A1c to evaluate for overall control -I suspect some of the fluctuations are due to use of basal plus bolus insulin instead of pump -I also suspect there may be some changes in her overall counter regulatory hormone levels due to aging -continue on lisinopril due to microalbuminuria - Comprehensive metabolic panel; Future - Hemoglobin A1c; Future 2. Essential hypertension -lisinopril 10 mg daily -goals of treatment reviewed with the patient -home and office readings are at goal. No changes 3. Bipolar II disorder ([facility]) -stable seeing Psychiatry Subjective DIABETIC VISIT This is a follow up of a pre-existing problem. Patient self monitoring includes CGM. Using Dexcom G6. Blood sugars have been in range most of the time. Has noticed fluctuations during the day, which she can not explain. Will happen 2-3 days a week , in spite of having the same schedule every day. Patient experiences hypoglycemia Rarely. Patient symptoms of hyperglycemia include: none. Current prescribed diet is consistent carbohydrate. Patient is following the prescribed diet plan. Home activity includes: 30-40 minutes of exercise 6 days a week . Patient does not experience numbness or burning in their hands or feet. Patient does not have vision changes. Last eye exam was: 2023 Patient BP monitoring is done regularly. BP normally 110 - 119 mmHg / 60 - 69 mmHg. Patient reports: taking medications as instructed, no medication side effects noted, no chest pain on exertion, no dyspnea on exertion, no swelling of ankles, no orthostatic dizziness or lightheadedness, no palpitations, and no intermittent claudication symptoms Issues affecting compliance with diabetic self management include: will likely be upgrading to a Dexcom G7. Still not using an insulin pump, prefers to use daily Lantus with p.r.n. Humalog. A review of systems was negative except for the following: Endocrine: Unexplained fluctuations in glucose.. Exam BP 126/70 (BP Site: Left Arm, BP Postition: Sitting, BP CUFF SIZE: M (9-13 inches)) Pulse 75 Temp 36.6 C (97.9 F) (Oral) Resp 18 Wt 48.1 kg (106 lb) LMP 05/03/2012 (Approximate) Comment: no period x 5 years SpO2 96% BMI 17.64 kg/m Physical Exam Vitals reviewed. Constitutional: General: She is not in acute distress. Appearance: She is well-developed. She is not toxic-appearing. Comments: Underweight HENT: Head: Normocephalic. Right Ear: External ear normal. Left Ear: External ear normal. Nose: No congestion or rhinorrhea. Mouth/Throat: Mouth: Mucous membranes are moist. Eyes: General: No scleral icterus. Comments: Mild cataracts noted bilaterally Neck: Vascular: No carotid bruit. Cardiovascular: Rate and Rhythm: Normal rate and regular rhythm. Heart sounds: No murmur heard. No gallop. Pulmonary: Effort: Pulmonary effort is normal. Breath sounds: No wheezing or rales. Abdominal: Palpations: Abdomen is soft. Musculoskeletal: Right lower leg: No edema. Left lower leg: No edema. Skin: General: Skin is warm and dry. Capillary Refill: Capillary refill takes less than 2 seconds. Coloration: Skin is not jaundiced. Findings: No bruising. Neurological: Mental Status: She is alert and oriented to person, place, and time. Sensory: No sensory deficit (Normal monofilament sensation on the toes, feet and ankles bilaterally). Motor: No weakness. Coordination: Coordination normal. Deep Tendon Reflexes: Reflexes are normal and symmetric. Psychiatric: Mood and Affect: Mood normal. Behavior: Behavior normal. Left: Pulses Posterior Tibial: present Vibratory sensation normal Filament test present Right: Pulses Posterior Tibial: present Vibratory sensation normal Filament test present Meds Current Outpatient Medications: fluorouraciL (EFUDEX) 5 % cream, Apply to directed areas on the chest twice a day x 14 days. Dispense 30 day supply but only use for 14 days., Disp: , Rfl: fluticasone propionate (FLONASE) 50 mcg/actuation nasal spray, Administer 1 spray into each nostril in the morning., Disp: 48 g, Rfl: 0 HumaLOG KwikPen Insulin 100 unit/mL insulin pen, INJECT 5 UNITS SUBCUTANEOUSLY 3 TIMES DAILY WITH MEALS, Disp: 15 mL, Rfl: 3 insulin lispro (HumaLOG) 100 unit/mL injection, Inject 0.05 mL (5 Units total) under the skin continuously. Max 10 units per day, Disp: 30 mL, Rfl: 1 lamoTRIgine (LaMICtal) 200 mg tablet, Take 1 tablet (200 mg total) by mouth in the morning., Disp: , Rfl: LANTUS SOLOSTAR U-100 INSULIN 100 unit/mL (3 mL) insulin pen, Inject 8 Units under the skin nightly., Disp: 15 mL, Rfl: 3 lisinopriL (PRINIVIL,ZESTRIL) 10 mg tablet, TAKE 1 TABLET BY MOUTH IN THE MORNING, Disp: 90 tablet, Rfl: 3 propranoloL (INDERAL) 10 mg tablet, Take 1 tablet (10 mg total) by mouth in the morning and 1 tablet (10 mg total) before bedtime., Disp: , Rfl: rosuvastatin (CRESTOR) 5 mg tablet, TAKE 1 TABLET BY MOUTH IN THE MORNING, Disp: 90 tablet, Rfl: 3 VYVANSE 30 mg capsule, , Disp: , Rfl: ziprasidone (GEODON) 20 mg capsule, , Disp: , Rfl: Lab Results No visits with results within 1 Month(s) from this visit. Latest known visit with results is: Hospital Outpatient Visit on 11/20/2023 Component Date Value Ref Range Status Microalbumin urine 11/20/2023 <0.7 0.0 - 1.9 mg/dL Final Urine creat 11/20/2023 26.57 mg/dL Final Alb/creat ratio 11/20/2023 NOT CALCULATED 0.0 - 30.0 mg/g creat Final Cholesterol 11/20/2023 178 150 - 200 mg/dL Final Triglycerides 11/20/2023 37 27 - 150 mg/dL Final HDL Cholesterol 11/20/2023 106 >39 mg/dL Final VLDL 11/20/2023 7 0 - 30 mg/dL Final LDL (calc) 11/20/2023 65 <130 mg/dL Final Cholesterol:HDL Ratio 11/20/2023 1.7 1.0 - 5.0 Final Sodium 11/20/2023 133 (L) 134 - 146 mmol/L Final Potassium, Bld 11/20/2023 4.0 3.5 - 5.0 mmol/L Final Chloride 11/20/2023 97 (L) 98 - 109 mmol/L Final CO2 11/20/2023 29 22 - 32 mmol/L Final Anion gap 11/20/2023 7 5 - 15 mmol/L Final BUN 11/20/2023 15 5 - 23 mg/dL Final Creatinine 11/20/2023 0.99 0.40 - 1.00 mg/dL Final Glucose 11/20/2023 157 (H) 65 - 99 mg/dL Final Calcium 11/20/2023 9.4 8.5 - 10.5 mg/dL Final Total Protein 11/20/2023 6.9 6.0 - 8.0 g/dL Final Albumin 11/20/2023 4.3 3.2 - 5.3 g/dL Final Alkaline Phosphatase 11/20/2023 59 39 - 130 U/L Final AST 11/20/2023 22 0 - 41 U/L Final ALT 11/20/2023 20 0 - 31 U/L Final Total bilirubin 11/20/2023 0.4 0.3 - 1.2 mg/dL Final eGFR (CKD-EPI)non-race dependent 11/20/2023 65 >59 ml/min/1.73sq.m Final Hemoglobin A1C 11/20/2023 6.6 (H) 4.4 - 5.6 % Final Average glucose 11/20/2023 143 mg/dL Final Other Testing No results found. Enrrique Zee DO., [facility] Office: [phone] documented in this encounter [facility] 06-11-2024 History of Present illness Narrative Images from the original note were not included. Suture Removal Patient here for suture removal: No complaints of redness, drainage or swelling at site, compliant with wound care. Location: Right upper back Procedure Performed: Excision Date of Procedure: 05/29/24 Medications: none All pertinent medical history, medications, and allergies were reviewed. General Exam: alert, oriented to person, place, and time, normal affect, well appearing Unaccompanied A focused exam completed based on patient reported problems, see below: 1. Encounter for removal of sutures Right Upper Back Sutures are intact, Skin edges are well-approximated, Mild erythema along incision line, No drainage or edema noted Suture removal today, see procedure note: Suture Removal Procedure: Sutures were removed without difficulty. Tincture of Benzoin was applied around site in preparation of steri-strips. Steri-strips were applied Post-Procedure instructions: Instructed to discontinue wound care., Pathology results discussed. Next Visit: as scheduled for FBSE documented in this encounter [facility] 05-29-2024 History of Present illness Narrative Images from the original note were not included. Subjective Josh Ferrari is a 58 y.o. female who presents for the following: Excision. Location: right upper back Date of biopsy: 2963 Diagnosis: Nodular basal cell carcinoma Pre-Op Checklist: History of pacemaker/defibrillator: No History of joint replacement in the past 2 years: No History of HIV/Hepatitis B/Hepatitis C: No Latex allergy: No Is the patient currently on a blood thinner? No. . All pertinent medical history, medications, and allergies were reviewed. Surgical assistants: Cheyanne East CMA and Harmony Trinh LPN Objective Well appearing patient in no apparent distress; mood and affect are within normal limits. 1. Basal cell carcinoma (BCC) of skin of other part of torso Right Upper Back [place] macule at biopsy site Skin excision Lesion length (cm): 1 Lesion width (cm): 0.7 Margin per side (cm): 0.4 Total excision diameter (cm): 1.8 Informed consent: discussed and consent obtained Informed consent comment: Risks and possible complications were discussed as noted on the consent form. The consent form was signed prior to the procedure. Timeout: patient name, date of , surgical site, and procedure verified Timeout comment: Patient and provider identified site. Site was marked and excision was drawn out. Photo was taken and shown to patient, patient verified this is the correct site. Procedure prep: Patient was prepped and draped in usual sterile fashion (The planned incision lines were drawn along relaxed skin tension lines, if possible, to minimize scarring and deformity of surrounding structures.) Prep type: Chlorhexidine Anesthesia: the lesion was anesthetized in a standard fashion Anesthesia comment: The local anesthetic was injected to create a field block at the site of the procedure. Anesthetic: 1% lidocaine w/ epinephrine 1-100,000 buffered w/ 8.4% NaHCO3 Instrument used: #15 blade Instrument used comment: Incisions were made as drawn, and the surrounding tissue was undermined until the skin edges could be approximated without undue tension. Any tissue redundancies were removed. Hemostasis achieved with: electrodesiccation Additional details: Amount of lidocaine used: 11.0 ml Estimated blood loss: 1.0 ml Skin repair Complexity: Intermediate Final length (cm): 4.3 Reason for type of repair: allow closure of the large defect Undermining: edges undermined Undermining comment: The surrounding tissue was undermined until the skin edges could be approximated without undue tension. Any tissue redundancies were removed. Subcutaneous layers (deep stitches): Suture size: 3-0 Suture type comment: Biosyn Stitches: Buried horizontal mattress (Closure was performed in a layered fashion with subcutaneous tissue closed first using tension-bearing absorbable sutures to the level of the superficial fascia.) Fine/surface layer approximation (top stitches): Suture size: 4-0 Suture type: Prolene (polypropylene) Stitches: simple running Stitches comment: Epicuticular skin sutures were then placed with minimal tension. Outcome: patient tolerated procedure well with no complications Post-procedure details: sterile dressing applied and wound care instructions given Post-procedure details comment: It was emphasized to the patient to contact the office for any signs of infection, uncontrollable bleeding, or complications. Dressing type: bandage Specimen A - Dermatopathology exam Differential Diagnosis: BCC Check Margins: yes Size of lesion: 1.0 x 0.7 cm Previous accession number: [id number] Follow up: 14 days for s/r documented in this encounter [facility] 05-10-2024 History of Present illness Narrative Images from the original note were not included. Mohs Surgery Location: Right spiritism Date of biopsy: 03/04/2024 Diagnosis: Basal Cell Carcinoma All pertinent medical history, medications, and allergies were reviewed. General Exam: alert, oriented to person, place, and time, normal affect, well appearing A focused exam completed based on patient reported problems, see below: 1. Basal cell carcinoma (BCC) of right spiritism region Right Latter-Day Erythematous macule at the biopsy site Mohs surgery Consent obtained: written (The rationale for Mohs as well as the risks, benefits, and alternatives. The risks of infection, scarring, bleeding, prolonged wound healing, incomplete removal, allergy to anesthesia or meds, nerve injury, and recurrence were addressed.) Junior Protocol: Procedure explained and questions answered to patient or proxy's satisfaction: Yes Test results available and properly labeled: Yes Pathology report reviewed: Yes Photo or diagram used for site identification: Yes Site/side marked: Yes Anticoagulation: Is the patient taking prescription anticoagulant and/or aspirin prescribed/recommended by a physician? No Anesthesia: Anesthesia method: local infiltration Local anesthetic: lidocaine 1% WITH epi and sodium bicarbonate Procedure Details: Biopsy accession number: [id number] Biopsy lab: [facility] Date of biopsy: 03/04/2024 Frozen section biopsy performed: Yes Specimen debulked: No Pre-Op diagnosis: basal cell carcinoma MohsAIQ Surgical site (if tumor spans multiple areas, please select predominant area): spiritism Surgery side: right Surgical site (from skin exam): Right Latter-Day Pre-operative length (cm): 1.4 Pre-operative width (cm): 0.4 Indications for Mohs surgery: anatomic location where tissue conservation is critical Other indications for Mohs surgery: tumor size is greater than 1 cm on the face Previously treated? No Mohs Appropriate Use Criteria Score: 7 Details of micrographic surgery: Mohs accession number: [id number] Micrographic Surgery Details: Post-operative length (cm): 1.5 Post-operative width (cm): 1.2 Number of Mohs stages: 2 Stage 1 Comments: The area was prepped with Betadine, draped in a sterile fashion, and infiltrated with local anesthetic. Sterile technique was used throughout the procedure. The marked area of clinical tumor with a small rim of clinically normal surrounding skin was removed using Mohs technique with beveled edges. Hash barnett were placed for orientation of the specimen. Hemostasis was achieved with electrodessication. After hemostasis, the defect was measured and recorded, a temporary sterile dressing was placed over the wound, and the patient was escorted to the waiting area. The specimen was oriented, mapped, and if necessary, divided into sections. A Mohs map was prepared. The specimen was placed in a labeled elba dish and was taken to the Mohs lab where it was chromacoded and processed. Mohs sections were prepared with serial tissue sections, stained, and evaluated by Dr. Light for interpretation of deep and peripheral margins. The Mohs map was marked accordingly. Amount of lidocaine used: 1.0 cc Estimated blood loss: minimal Defect size: 1.5 x 1.1 cm Number of blocks per stage: 1 Number of positive blocks: 1 Tumor features identified on Mohs section: basal carcinoma Tumor features identified on Mohs section comment: superficial and nodular pattern Depth of defect after stage: dermis Stage 2 Comments: The patient returned to the procedure room, the dressing was removed, the tumor area was re-prepped and draped, and anesthesia was assessed and augmented as necessary. A layer of tissue around the positive margin(s) was removed, and the tissue was oriented, mapped, and processed in an identical fashion as for Stage 1. Hemostasis was achieved and dressing placed as in Stage 1. The patient was escorted to the waiting area. As with Stage 1, Mohs sections were prepared with serial tissue sections, stained, and evaluated by Dr. Light for interpretation of deep and peripheral margins. The Mohs map was updated. Assistants: Indra Banks MA Amount of lidocaine used: 1.0 cc Estimated blood loss: minimal Defect size: 1.5 x 1.2 cm Number of blocks: 1 Number of positive blocks: 0. Tumor free margins were obtained and the Mohs procedure was considered complete. Tumor features identified on Mohs section: no tumor identified Depth of defect after stage: dermis Patient tolerance of procedure: tolerated well, no immediate complications Reconstruction: Was the defect reconstructed?: No Antibiotics: Were antibiotics given on the day of surgery?: No Mohs Post Operative Type of repair: None. Wound to heal by secondary intention. Wound Care: A dressing was placed on the surgical wound. Post-operative instructions were given in writing and were reviewed with the patient. A follow-up appointment was made, and instructions were given to follow-up sooner if necessary. Next visit: 05/29/2024 documented in this encounter [facility] 03-04-2024 History of Present illness Narrative Images from the original note were not included. Skin Check Location: Patient requests a full body skin examination Dermatologic history: history of Actinic Keratosis Last visit: 10/2021 Lesions: Location: right upper back Duration: 4 months Quality: denies pain, denies itch Associated symptoms: red Treatments: Efudex cream bid x 14 days- finished 1 month ago Established patient All pertinent medical history, medications, and allergies were reviewed. General Exam: alert, oriented to person, place, and time, normal affect, well appearing Unaccompanied Areas not examined despite medical recommendation: Under socks Scalp, Examined , exam limited by hair Right leg Examined Head, Face Examined Left leg Examined Neck Examined Right foot not Examined Chest Examined Left foot not Examined Back Examined Buttocks Examined Abdomen Examined Digits,nails: Examined Right arm Examined Left arm Examined Lymphatics: Not examined Hands Examined 1. Lentigines (2) Head - Anterior (Face), Torso - Posterior (Back) Scattered hills macules in sun-exposed areas. The patient was informed that lentigines are benign pigmented lesions that occur on sun-exposed and sun-damaged skin. No treatment is necessary. Recommended regular use of broad spectrum sunscreen SPF 30 or higher 2. Neoplasm of unspecified behavior of bone, soft tissue, and skin (2) Right Upper Back [place] pearly papule Lesion biopsy Type of biopsy: tangential [...] A - Dermatopathology exam Differential Diagnosis: BCC Check Margins: No Size of lesion: 1.0 x 0.7 cm Right L[place] scaly papule Lesion biopsy Type of biopsy: tangential [...] Amount of lidocaine used: 1.0 cc Specimen B - Dermatopathology exam Differential Diagnosis: SCC vs excoriation Check Margins: No Size of lesion: 1.4 x 0.4 cm 3. Actinic keratosis (7) Left Dorsal Hand (2), Left Lower Back, Left Shoulder - Posterior, Left Thigh - Anterior, Mid Supratip of Nose, Right Upper Back Erythematous scaly papules Patient was counseled regarding these sun-induced growths that can develop into squamous cell carcinoma if left untreated. Discussed treatment with cryotherapy. It was emphasized that any treated lesions that fail to resolve should be re-evaluated. Cryotherapy performed today; see procedure note Diagnosis: Actinic keratosis Indication: Precancerous Location: see skin exam Consent: Verbal consent was obtained and risks were discussed, including, but not limited to risks of scarring, darker or loan review officer pigmentary changes, recurrence, incomplete removal and infection. Method: Liquid nitrogen was used to treat the lesion(s) with two 5-10 second freeze-thaw cycles. Number of lesions treated: 7 Post-procedure instructions: Instructions were given orally and in writing. The office will be contacted if the lesion fails to resolve despite treatment, or if a side effect develops such as abnormal crusting, scabbing, redness or tenderness Educated on Efudex treatment. Discussed that treated areas will become red, crusty, and inflamed. If areas become too uncomfortable, patient may use OTC hydrocortisone cream to help decrease irritation. Sun exposure should be avoided during treatment. Patient instructed to contact office for any questions. Lesions that fail to resolve once treated area is healed should be re-evaluated in the office. Handout given to patient. Start Efudex cream bid x 14 days to chest. Cryotherapy, skin lesion - Left Dorsal Hand (2), Left Lower Back, Left Shoulder - Posterior, Left Thigh - Anterior, Mid Supratip of Nose, Right Upper Back Related Medications fluorouracil (Efudex) 5 % cream Apply to directed areas on the chest twice a day x 14 days. Dispense 30 day supply but only use for 14 days. Next Visit: 1 year documented in this encounter [facility] 07-23-2022 Evaluation note Encounter Date Diagnosis Assessment Notes Jul, Dysuria (ICD-10 - R30.0) Jul, Acute cystitis without hematuria (ICD-10 - N30.00) Acute cystitis material was printed Plenty fluids, get plenty of rest. Take the Bactrim and Pyridium as prescribed until gone. Follow-up with your family physician if no improvement in 2 to 3 days. Patient's urine dip is negative for leukocytes, nitrites, blood however patient will be treated for UTI due to her symptoms Keepy Other Evaluation noteNo assessment information available [facility] Work Phone: Evaluation note* Diagnosis Seborrheic keratosis- Primary Neoplasm of unspecified behavior of bone, soft tissue, and skin Actinic keratosis Lentigines documented in this encounter [facility]* Diagnosis Basal cell carcinoma (BCC) of right spiritism region [facility] Diagnosis Basal cell carcinoma (BCC) of skin of other part of torso- Primary [facility]* Diagnosis Encounter for removal of sutures- Primary documented in this encounter [facility]* Diagnosis Type 1 diabetes mellitus with microalbuminuria ([facility] Primary Essential hypertension Unspecified essential hypertension Bipolar II disorder ([facility]) Other bipolar disorders documented in this encounter [facility] Diagnosis Type 1 diabetes mellitus with microalbuminuria ([facility]) documented [facility] this [facility] Diagnosis Seborrheic keratosis- Primary Actinic keratosis Sebaceous hyperplasia of face Neoplasm of unspecified behavior of bone, soft tissue, and skin Lentigines History of basal cell carcinoma Personal history of other malignant neoplasm of skin documented in this encounter [facility] Healthcare[facility] general Narrative - Reported* Type Description Date Medical History type I diabetes Medical History Benign essential HTN Medical History Anxiety Medical History CHRONIC KIDNEY DISEASE STAGE 3 Medical History BIPOLAR II DISORDER Medical History ALLERGIC RHINITIS Medical History GERD Surgical History trigger finger release x3 Surgical History tubal ligation Surgical History wisdom teeth Surgical History rotator cuff tear repair Hospitalization History kidney infection Hospitalization History child births Hospitalization History diabetes mellitus [facility] Other InstructionsNot on filedocumented in this encounter [facility] filed[facility] System[facility]ructionsNot on filedocumented in this encounter [facility]Reason for referral (narrative)No reason for referral information availableWilson Health Work Phone: Summary Purpose Family History Relationship Condition Age at Onset Recorded Date/T magaly brother Diabetes mellitus Unknown father Diabetes mellitus Unknown Advance Directives Advance Directive Response Recorded Date/ Time Advance Directives No March 3:17pm Chief Complaint and Reason for Visit Chief Complaint poss UTI Chief Complaint poss UTI Increased frequency of urination Chief Complaint Admit Date nausea, urinary urgency January 17 2:04pm Additional Source Comments INFORMATION SOURCE (unrecogn ized section and content) DATE CREATED AUTHOR 08/19/2021 [facility] DATE CREATED AUTHOR AUTHOR'S ORGANIZ ATION 08/28/2022 [facility] DATE CREATED AUTHOR AUTHOR'S ORGANIZ ATION 02/19/2024 [facility] DATE CREATED AUTHOR AUTHOR'S ORGANIZ ATION 06/29/2024 [facility] DATE CREATED AUTHOR AUTHOR'S ORGANIZ ATION 06/29/2024 [facility] DATE CREATED AUTHOR AUTHOR'S ORGANIZ ATION 01/10/2025 [facility] EPIC REASON FOR VISIT (unrecogniz ed section and content) Reason Comments Skin Check Reason Comments Mohs Micrographic Surgery Reason Comments Excision Reason Comments Suture / Staple Removal Reason Comments Diabetes Reason Comments Med Refill Care Teams (unrecognized sec tion and content) Team Status: Active Member Role Status Dates Enrrique Zee DO Primary Care Provider Active Team Status: Inactive Member Role Status Dates Enrrique Zee DO Primary Care Provider Active Sta rt: February 17, 2024 End: February 17, 2024 Elisabet Winter APRN Attending Provider Active Start: February 17, 2024 End: February 17, 2024 Team Status: Inactive Member Role Status Dates Elisabet Winter APRN Attending Provider Active Start: February 17, 2024 End: February 17, 2024 Isotope Technologist Relationship Specialty Start Date End Date Enrrique Zee DO [address] [place] [address] PCP - General Internal Medicine 04/21/17 Isotope Technologist Relationship Specialty Start Date End Date Enrrique Zee DO [address] [place] [address] PCP - General Internal Medicine 04/21/17 Team Status: Active Member Role Status Dates PHYSICIAN NO FAMILY Primary Care Provider Active Team Status: Inactive Member Role Status Dates PHYSICIAN NO FAMILY Primary Care Provider Active Start: January 17, 2025 End: January 17, 2025 Linh Millan APRN Attending Provider Active S tart: January 17, 2025 End: January 17, 2025 Goals (unrecognized section and content) Goals may be documented in a n alternate section FOR RECORDS PERTAINING TO PATIENTS WHO ARE OR HAVE BEEN ENROLLED IN A CHEMICAL DEPENDENCY/SUBSTANCEABUSE PROGRAM, SOME INFORMATION MAY BE OMITTED. This clinical summary was aggregated from multiple sources. Caution should be exercised in using it in the provision of clinical care. This summary normalizes information from multiple sources, and as a consequence, information in this document may materially change the coding, format and clinical context of patient data. In addition, data may be omitted in some cases. CLINICAL DECISIONS SHOULD BE BASED ON THE PRIMARY CLINICAL RECORDS. [facility] [employer] [facility]. provides no warranty or guarantee of the accuracy or completeness of information in this document.
--- NOTE | 2025-01-17 14:56 | ECG_ITS ---
[facility] Test Date: 2025-01-17 Pat Name: JOSH CORDERO Department: Room: - Gender: Female Control Technician: : 1965 Requested By: ENRRIQUE ZEE Order Number: [id number] Reading MD: MICHELLE RUSSELL Measurements Intervals [place] Rate: 73 P: 63 MN: 120 QRS: 82 QRSD: 70 T: 72 QT: 382 QTc: 408 Interpretive Statements 1100 Sinus rhythm 7300 Indeterminate axis 9120 atypical ECG No previous ECG available for comparison Electronically Signed On 01-22-2025 13:27:43 EDT by MICHELLE RUSSELL
--- NOTE | 2025-01-17 14:58 | ED_ITS ---
HPI - Abdominal Pain General Chief Complaint: Abdominal Pain Stated Complaint: abdominal pain Time Seen by Provider: 01/17/25 14:37 Source: patient Mode of arrival: walk-in History of Present Illness HPI narrative: Patient is 59-year-old female comes into the ED today with a complaint of upper abdominal pain. She states it feels like pressure and goes to the right side of her back. She states it is always there but there are times that it gets much worse. She has not noticed any pain shooting up into her chest. No shortness of breath no lightheadedness or dizziness. She did have a nausea episode but she did not have any vomiting this morning. She has had normal bowel movements. She denies any dysuria or hematuria. She states she does have a history of some type of kidney infection that required her to be hospitalized a few years ago she has never had a history of kidney stones. She has been afebrile. She is eating and drinking normally. Patient has diabetic. She is a history of high lipidemia and high tension. She states her blood sugars have been in normal range at home. She states the pain seemed to progress over the last couple hours so she came in to be evaluated. Related Data Home Medications ?Medication ?Instructions ?Recorded ?Confirmed insulin glargine 100 unit/mL (3 unit subcut 01/17/25 mL) subcutaneous pen (Lantus Solostar U-100 Insulin) insulin lispro 100 unit/mL subcut 01/17/25 subcutaneous pen (Humalog KwikPen (U-100) Insulin) lamotrigine 150 mg tablet mg 01/17/25 lisdexamfetamine 30 mg capsule mg 01/17/25 lisinopril 10 mg tablet mg 01/17/25 rosuvastatin 5 mg tablet mg 01/17/25 ziprasidone HCl 20 mg capsule mg PO 01/17/25 Allergies Allergy/AdvReac Type Severity Reaction Status Date / Time Penicillins Allergy Severe Vomiting Verified 01/17/25 14:41 PFSH PFSH Social History Little interest or pleasure in doing things: not at all Feeling down, depressed, or hopeless: not at all Exam Narrative Exam Narrative: * General: The patient is alert, oriented, and in no acute distress. * Vital Signs: Blood pressure 134/78, heart rate 88 bpm, respiratory rate 16 bpm, afebrile. * HEENT: PERRLA, EOMI, no scleral icterus. * Neck: No jugular venous distention, no lymphadenopathy, no thyroid enlargement. * Cardiovascular: Regular rate and rhythm, no murmurs, rubs, or gallops. Normal peripheral pulses. * Respiratory: Clear to auscultation bilaterally, no wheezes, rales, or rhonchi. * Abdomen: * Inspection: Abdomen is soft, non-distended. No masses. * Palpation: Tenderness noted in the epigastrium and right upper quadrant (RUQ). No rebound tenderness or guarding. No palpable masses or hepatomegaly. No costovertebral angle (CVA) tenderness. * Percussion: No dullness or abnormal sounds. * Auscultation: Normal bowel sounds, no bruits. * Genitourinary: Non-tender, no suprapubic tenderness. No signs of hematuria or dysuria. * Neurologic: Alert and oriented to person, place, and time. No focal deficits noted. * Skin: No jaundice, rashes, or lesions noted. Overall: Otherwise normal exam with localized tenderness in the epigastrium and RUQ. No signs of peritoneal irritation, acute infection, or significant systemic abnormalities. Constitutional Vital Signs, click to edit/add: Last Vital Signs Temp 97.8 F 01/17/25 14:44 Pulse 85 01/17/25 14:44 Resp 16 01/17/25 14:44 BP 129/62 01/17/25 14:44 Pulse Ox 100 01/17/25 14:44 O2 Del Method Room Air 01/17/25 14:44 Course Vital Signs Vital signs: Vital Signs Temperature 97.8 F 01/17/25 14:44 Pulse Rate 85 01/17/25 14:44 Respiratory Rate 16 01/17/25 14:44 Blood Pressure 129/62 01/17/25 14:44 Pulse Oximetry 100 01/17/25 14:44 Oxygen Delivery Method Room Air 01/17/25 14:44 Temperature 97.8 F 01/17/25 14:44 Pulse Rate 85 01/17/25 14:44 Respiratory Rate 16 01/17/25 14:44 Blood Pressure 129/62 01/17/25 14:44 Pulse Oximetry 100 01/17/25 14:44 Oxygen Delivery Method Room Air 01/17/25 14:44 MDM - Abdominal Pain MDM Narrative Medical decision making narrative: 59-year-old female with a history of diabetes, hypertension, and hyperlipidemia presents with acute right upper quadrant/epigastric pain radiating to the back, associated with nausea. She is afebrile and hemodynamically stable. No chest pain, shortness of breath, vomiting, dysuria, or hematuria. Initial differential included biliary pathology (cholecystitis, biliary colic), pancreatitis, peptic ulcer disease, renal causes, and atypical cardiac etiology. Labs, including CBC, liver enzymes, lipase, and urinalysis, were within normal limits. Two sets of troponins were negative. EKG showed normal sinus rhythm without acute changes. Abdominal ultrasound was unremarkable for biliary obstruction or cholecystitis. CT abdomen/pelvis suggested possible colitis but no acute intra-abdominal process requiring intervention.No diarrheal symptoms. Given the normal workup and reassuring imaging and labs, acute serious pathology was effectively ruled out. Patient remains stable, tolerating oral intake, and symptoms are manageable with outpatient therapy. She was counseled on using Pepcid for symptomatic relief, educated on return precautions, and advised to follow up with her primary care provider. No inpatient intervention is indicated at this time. Medical Records Attestation: I reviewed the patient's medical records. Lab Data Attestation: I reviewed the patient's lab results. Labs: Lab Results 01/17/25 01/17/25 01/17/25 Range/Units 14:40 15:15 17:02 WBC 6.1 (4.0-11.0) 10^3/uL RBC 4.23 (4.20-5.40) 10^6/uL Hgb 13.3 (12.0-16.0) g/dL Hct 38.9 (36.0-48.0) % MCV 92.0 (81.0-99.0) fL MCH 31.4 (26.7-34.0) pg MCHC 34.2 (29.9-35.2) g/dL RDW 12.4 (11.0-15.0) % Plt Count 211 (150-450) 10^3/uL MPV 9.1 L (9.5-13.5) fL Neut % (Auto) 52.1 (43.0-75.0) % Lymph % (Auto) 24.8 (20.5-60.0) % Dickens % (Auto) 8.9 (1.7-12.0) % Eos % (Auto) 13.5 H (0.9-7.0) % Baso % (Auto) 0.5 (0.2-2.0) % Neut # (Auto) 3.2 (1.4-6.5) 10^3/uL Lymph # (Auto) 1.5 (1.2-3.8) 10^3/uL Dickens # (Auto) 0.5 (0.3-0.8) 10^3/uL Eos # (Auto) 0.8 H (0.0-0.7) 10^3/uL Baso # (Auto) 0.0 (0.0-0.1) 10^3/uL Abs Immat Gran (auto) 0.01 (0.00-0.03) 10^3/uL Imm/Tot Granulo (auto) 0.2 (0.0-0.5) % Sodium 135 L (136-145) mmol/L Potassium 3.9 (3.5-5.1) mmol/L Chloride 99 (98-107) mmol/L Carbon Dioxide 29.2 (21.0-32.0) mmol/L Anion Gap 10.7 BUN 16.0 (7.0-18.0) mg/dL Creatinine 0.94 (0.55-1.02) mg/dL Est GFR ( Amer) >60 (>=60 mL/min/1.73m^2) Est GFR (Non-Af Amer) >60 (>=60 mL/min/1.73m^2) BUN/Creatinine Ratio 17.0 Glucose 199 H (74-106) mg/dL Calcium 8.8 (8.5-10.1) mg/dL Total Bilirubin 0.3 (0.2-1.0) mg/dL AST 20 (15-37) U/L ALT 35 (14-59) U/L Alkaline Phosphatase 79 (46-116) U/L Troponin I High Sens 4.9 8.1 (4.0-51.3) pg/mL Total Protein 7.3 (6.4-8.2) g/dL Albumin 3.9 (3.4-5.0) g/dL Globulin 3.4 g/dL Albumin/Globulin Ratio 1.1 Lipase 35.0 (16.0-77.0) U/L Urine Color Lt. yellow (YELLOW) Urine Clarity Clear (CLEAR) Urine pH 6.0 (5.0-9.0) Ur Specific [place] 1.010 (1.005-1.025) Urine Protein Negative (NEG/TRACE) mg/dL Urine Glucose (UA) 250 A (NEGATIVE) mg/dL Urine Ketones Negative (NEGATIVE) mg/dL Urine Occult Blood Trace-i (NEGATIVE) Urine Nitrite Negative (NEGATIVE) Urine Bilirubin Negative (NEGATIVE) Urine Urobilinogen 0.2 (0.2-1.0) EU/dL Ur Leukocyte Esterase Trace A (NEGATIVE) Urine RBC 0-2 (0-2) #/HPF Urine WBC 2-5 A (NONE SEEN) #/HPF Ur Squamous Epith Cells Rare (NONE/RARE) #/LPF Urine Crystals None seen (None Seen) #/HPF Urine Bacteria Trace A (NONE SEEN) #/HPF Urine Casts None seen (NONE SEEN) #/LPF Urine Mucus None seen (NONE SEEN) Ur Culture Indicated? No Imaging Data CT scan - abdomen: Attestation: I have reviewed the pertinent imaging results. Radiologist's impression: ITS Impressions Abdomen/Pelvis CT 01/17/25 15:38 IMPRESSION: There is wall thickening along the descending and sigmoid colon presumably relating to colitis. This may be infectious or inflammatory. No bowel obstruction or obstructive uropathy. No visualized renal, ureteral, or bladder stones. Impression dictated by: Pankaj Chun M.D. 01/17/2025 5:02 PM Dictation Location: [place] [address] Electronically authenticated by: [id number] Y Date: 01/17/2025 17:02 ECG Data Attestation: ?I have reviewed the pertinent ECG results. ECG interpretation date: 01/17/25 ECG interpretation time: 15:26 Prior ECG tracings: not available for review Ischemic changes: ST elevation Interpretation: EKG shows sinus rhythm with a acute per minute. NC interval 120, QRS ration 78, QT/QTc of 382/408. No STEMI. Flattened T wave in V2. No ST depression or elevation no abnormal rhythms or ectopy. Evaluated by Dr. Caceres after completion.. Discharge Plan Discharge Chief Complaint: Abdominal Pain Clinical Impression: Acute epigastric pain Patient Disposition: Home, Self-Care Time of Disposition Decision: 18:05 Condition: Good Prescriptions / Home Meds: No Action lamotrigine 150 mg tablet ziprasidone HCl 20 mg capsule PO lisinopril 10 mg tablet insulin lispro [Humalog KwikPen Insulin] 100 unit/mL insulin pen SUBCUT rosuvastatin 5 mg tablet lisdexamfetamine 30 mg capsule insulin glargine [Lantus Solostar U-100 Insulin] 100 unit/mL (3 mL) insulin pen SUBCUT Print Language: Kittitian Instructions: Epigastric Pain (ED) Additional Instructions: Discharge Instructions: Epigastric (Upper Abdominal) Pain Your evaluation today, including labs, imaging, and heart testing, did not show any signs of a heart problem or other serious emergency. At this time, your pain is thought to be most likely related to the stomach, esophagus, or another part of the digestive system. What you can do at home: * Take any prescribed or recommended medications as directed. * Avoid foods and drinks that may irritate your stomach, such as caffeine, alcohol, spicy foods, fried foods, or acidic foods. * Eat smaller, more frequent meals rather than large meals. * Do not lie flat right after eating; wait at least 2?3 hours. * Use [id number] antacids if advised by your doctor. Follow-up: * See your primary care provider within the next few days for recheck. * You may need referral to a slater apprentice if symptoms continue. Return to the Emergency Department immediately if you develop: * Worsening or severe abdominal pain * Chest pain, shortness of breath, sweating, or fainting * Vomiting blood or material that looks like coffee grounds * Black or bloody stools * Persistent vomiting or inability to keep fluids down * Fever, chills, or feeling very weak Referrals: ENRRIQUE ZEE [Primary Care Provider, Internal Medicine] - 1 week Discharge Date/Time: 01/17/25 18:21
[2025-01-17] MEDS: 0.9 % SODIUM CHLORIDE 1,000 ML 999 ML IV (15:09)
[2025-01-17 15:30] LABS: Hematocrit 38.9 % (36.0-48.0); Hemoglobin 13.3 g/dL (12.0-16.0); Immature Granulocytes Abs Auto 0.01 10^3/uL (0.00-0.03); Immature Granulocytes Pct Auto 0.2 % (0.0-0.5); Lymphocytes Absolute Auto 1.5 10^3/uL (1.2-3.8); Mean Corpuscular HGB Conc 34.2 g/dL (29.9-35.2); Mean Corpuscular Hemoglobin 31.4 pg (26.7-34.0); Mean Corpuscular Volume 92.0 fL (81.0-99.0); Platelet Count 211 10^3/uL (150-450); Red Blood Count 4.23 10^6/uL (4.20-5.40); White Blood Count 6.1 10^3/uL (4.0-11.0)
[2025-01-17 15:36] LABS: Glucose Urine UA 250 mg/dL (NEGATIVE)
--- NOTE | 2025-01-17 15:38 | CT_ITS ---
[address] [address] Patient Name: JOSH CORDERO MRN: [id number] date: 1965 Sex: F Assigned Patient Location: ER Current Patient Location: Accession/Order Number: [id number] Exam Date: 01/17/2025 16:20 Report Date: 01/17/2025 17:02 At the request of: MITCHELL DE LEON Procedure: CT abdomen pelvis w con CT abdomen pelvis w con 01/17/2025 4:29 PM SIGNS AND SYMPTOMS: Lower abdominal pain/flank pain TECHNIQUE: Multidetector ct axial images of the abdomen and pelvis were obtained with IV contrast. Multiplanar reformats were performed and reviewed to further define anatomy and possible pathology. CT was performed with one or more of the following dose reduction techniques: Automated exposure control, adjustment of the mA and/or kV according to patient size, or use of iterative reconstruction technique. COMPARISON: None. FINDINGS: Lower Chest: Within normal limits. ABDOMEN: Liver: Within normal limits. Bile Ducts: Normal caliber. Gallbladder: No calcified gallstones. Normal caliber wall. Pancreas: Within normal limits. Spleen: Calcified granulomas are present in the spleen. Adrenals: Within normal limits. Kidneys: Within normal limits. Pelvis: Reproductive Organs: No pelvic masses. Ureters: Within normal limits. Bladder: Within normal limits. Bowel: There is wall thickening along the descending and sigmoid colon with accompanying fat stranding suspicious for colitis which may be infectious or inflammatory. There is no evidence of bowel obstruction. Mesenteric Lymph Nodes: No enlarged mesenteric lymph nodes. Peritoneum: No ascites or free air, no fluid collection. Vessels: Atherosclerotic changes are noted in the abdominal aorta and its branches. Retroperitoneum: Within normal limits. Abdominal Wall: Within normal limits. Bones: Degenerative changes are noted in the lumbar spine, hips, and sacroiliac joints. CT/CT abdomen pelvis w con IMPRESSION: There is wall thickening along the descending and sigmoid colon presumably relating to colitis. This may be infectious or inflammatory. No bowel obstruction or obstructive uropathy. No visualized renal, ureteral, or bladder stones. Impression dictated by: Pankaj Chun M.D. 01/17/2025 5:02 PM Dictation Location: [id number] Electronically authenticated by: [id number] Y Date: 01/17/2025 17:02
[2025-01-17 15:43] LABS: Cast Seen? NONE SEEN #/LPF (NONE SEEN); Crystals Seen? None Seen #/HPF (None Seen); Urine Culture Indicated NO
[2025-01-17 15:46] LABS: Alanine Aminotransferase 35 U/L (14-59); Albumin Globulin Ratio 1.1; Albumin Level 3.9 g/dL (3.4-5.0); Alkaline Phosphatase 79 U/L (46-116); Anion Gap 10.7; Aspartate Amino Transferase 20 U/L (15-37); Blood Urea Nitrogen 16.0 mg/dL (7.0-18.0); Calcium 8.8 mg/dL (8.5-10.1); Carbon Dioxide 29.2 mmol/L (21.0-32.0); Chloride 99 mmol/L (98-107); Estimated GFR (African America >60 (>=60 mL/min/1.73m^2); Estimated GFR (Non-African Ame >60 (>=60 mL/min/1.73m^2); Globulin 3.4 g/dL; Glucose 199 mg/dL (74-106); Lipase 35.0 U/L (16.0-77.0); Potassium 3.9 mmol/L (3.5-5.1); Sodium 135 mmol/L (136-145); Total Protein 7.3 g/dL (6.4-8.2)
== END 2025-01-17 18:21 | disposition home or self-care (01) ==
PROVIDERS: Physician Assistant; Emergency Provider Student in an Organized Health Care Education/Training Program; PCP Internal Medicine
DX: R10.13 Epigastric pain (principal); E11.9 Type 2 diabetes mellitus without complications; E78.5 Hyperlipidemia, unspecified; I10 Essential (primary) hypertension; Z79.4 Long term (current) use of insulin
CPT/HCPCS: 36415; 74177; 80053; 81001; 83690; 84484; 85025; 93005; 99285; Q9967